=== PATIENT | female | born 1935 | race Caucasian/White ===

== ENCOUNTER 2016-03-16 10:43 | Emergency (ER) | payer OTHER ==
[2016-03-16 10:49] VITALS: TEMP 97.7
--- NOTE | 2016-03-16 10:59 | CPEKG ---
Heart Rate: 60 RR Interval: 1000 P-R Interval: 234 QRSD Interval: 126 QT Interval: 420 QTC Interval: 420 P [place]: 0 QRS [place]: -81 T Wave [place]: 92 EKG Severity - ABNORMAL ECG - EKG Impression: VENTRICULAR-PACED RHYTHM Electronically Signed By: Harry Grant 16-Mar-2016 21:18:04
[2016-03-16 11:02] VITALS: PULSE 60
--- NOTE | 2016-03-16 11:29 | EDPHY ---
H & P Stated Complaint: R arm pain into jaw now has resolved Time Seen by Provider: 03/16/16 11:07 - Personal History Current Tetanus/Diphtheria Vaccine: Unsure Current Tetanus Diphtheria and Acellular Pertussis (TDAP): Unsure Tetanus Vaccine Date: UNSURE OF DATE-LONG TIME AGO - Medical/Surgical History Hx Asthma: No Hx Chronic Respiratory Disease: No Hx Diabetes: No Hx Cardiac Disease: Yes Hx Renal Disease: No Hx Cirrhosis: No Hx Alcoholism: No Hx HIV/AIDS: No Hx Splenectomy or Spleen Trauma: No Other PMH: bradycardia, pacemaker, stroke, hyperlipidemia, hypertension - Social History Smoking Status: Former smoker Constitutional: Initial Vital Signs Temperature (C) 36.5 C 03/16/16 10:46 Heart Rate 62 03/16/16 10:46 Respiratory Rate 14 03/16/16 10:46 Blood Pressure 147/100 H 03/16/16 10:46 O2 Sat (%) 97 03/16/16 10:46 O2 Delivery Mode Room Air Allergies/Adverse Reactions: Penicillins Allergy (Intermediate, Verified 02/21/14 11:05) Rash Sulfa (Sulfonamide Antibiotics) Allergy (Intermediate, Verified 02/21/14 11:05) Rash Home Medications: Medication Instructions Recorded Bimatoprost 0.01% [Lumigan 0.01% 1 drops EACHEYE HS 12/19/12 (*)] Eflornithine HCl [Vaniqa] 1 keith TP BID 12/12/13 Polysorbate 80/Glycerin [Refresh 1 drop OP Q4 PRN 12/12/13 Dry Eye Therapy Drops] Donepezil HCl [Aricept] 10 mg PO DAILY 03/10/16 Prasugrel HCl [Effient 5mg (*)] 5 mg PO DAILY #0 tab 03/12/16 Aspirin [Aspirin 325 mg (*)] 325 mg PO DAILY 100 Days 03/13/16 amLODIPine BESYLATE [Norvasc 10 mg 10 mg PO DAILY #30 tab 03/13/16 (*)] Medical Decision Making ED Course/Re-evaluation: CHIEF COMPLAINT: Arm, shoulder and neck pain HISTORY OF PRESENT ILLNESS: 80-year-old female who is somewhat of a poor historian as she has some mild dementia. She states that she had a stent placed about a week ago. At that time she had left chest pain which is persistent and some shortness of breath. She was admitted to the hospital and received stenting. She was discharged and was discharged on Eliquis however she is not sure she is taking that or not she can remember. Today while at rest she developed right arm pain right shoulder pain and right neck pain which she has had was quite strong but only lasted a couple of minutes. She had no associated symptoms. This was not like the pain that presented before catheterization. She is also concerned because she has significant bruising of the right forearm. She denies any other symptoms at this time. REVIEW OF SYSTEMS: A 10 point review of systems was performed and is negative with the exception of the elements mentioned in the history of present illness. PHYSICAL EXAM: HR, BP, O2 Sat, RR. Temp noted General Appearance: Alert, well hydrated, appropriate, and non-toxic appearing. Head: Atraumatic without scalp tenderness or obvious injury Eyes: Pupils equal, round, reactive to light and accommodation, EOMI, no trauma , no injection. Ears: Clear bilaterally, no perforation, normal landmarks Nose: Atraumatic, no rhinorrhea, clear. Throat: There is no erythema or exudates, no lesions, normal tonsils, mucus membranes moist. Neck: Supple, 2+ carotid upstroke, nontender, no lymphadenopathy. Respiratory: No retractions, no distress, no wheezes, and no accessory muscle use. Lungs are clear to auscultation bilaterally. Cardiovascular: Regular rate and rhythm, no murmurs, rubs, or gallops. Bilateral carotid, radial, dorsalis pedis, and posterior tibial pulses intact. Good capillary refill all extremities. Gastrointestinal: Abdomen is soft, nontender, non-distended, no masses, no rebound, no guarding, no peritoneal signs. Musculoskeletal: Normal active ROM of all extremities, atraumatic. Neurological: Alert, appropriate, and interactive. The patient has normal DTRs and non-focal cranial nerves, motor, sensory, and cerebellar exam. Skin: Ecchymosis of the right forearm where she had stent placement. No rashes , good turgor, no nodules on palpation. Past medical history: Coronary artery disease, hypertension, dysrhythmia, mild dementia Past surgical history: Stent placement Family history: Noncontributory Social history: , does not abuse tobacco drugs or alcohol, retired, lives alone DIAGNOSTICS/PROCEDURES/CRITICAL CARE TIME: The 12 lead EKG was interpreted by myself. See hard copy and/or "tracemaster" electronic copy for interpretation. Paced rhythm the same as 03/12/16 DIFFERENTIAL DIAGNOSIS: The differential diagnosis for the patient's right arm , shoulder, neck included but was not limited to myocardial ischemia, pulmonary embolus, chest wall pain, musculoskeletal pain, pleural inflammation, and pulmonary infectious causes. MEDICAL DECISION MAKING: This patient has no infectious symptoms. She had a brief episode of sharp right arm and right neck pain. Her EKG looks the same as prior EKG but it is paced. My only real concern is that she is unsure if she is taking Eliquis even though it is on her discharge instructions from Dr. Lau. Laboratory studies are pending. The patient remains asymptomatic. The patient's troponin noted to be elevated at .898. However, this is down from her troponin of 9.7 on 03/12/2016 (4 days ago). 1214: Consulted with Dr. Melton, cardiology. Dr. Melton knows this family extremely well and has known for 20-30 years. He does not think that this is anything to do with cardiac event and he believes this is most likely due to her right wrist cannulation for her catheterization. She had very brief less than a couple of minutes sharp pain in her right arm and shoulder. Her coronary symptoms are most usually left chest pain. Her troponin is slightly elevated but coming down from her catheterization. Dr. Melton has a follow-up visit ready scheduled with her this week in addition to a nuclear med study. Dr. Lam does not believe she needs to be admitted. I will discharge the patient home to follow up as an outpatient. 1331: Reassessed patient. Her is angry and Dr. Melton has offered to speak to him, which is being set up now. - Data Points Laboratory Results: Laboratory Results 03/16/16 11:05 03/16/16 11:05 03/16/16 11:05 WBC 6.97 10^3/uL (3.80-9.50) RBC 4.30 10^6/uL (4.18-5.33) Hgb 14.6 g/dL (12.6-16.3) Hct 43.7 % (38.0-47.0) MCV 101.6 H fL (81.5-99.8) MCH 34.0 pg (27.9-34.1) MCHC 33.4 g/dL (32.4-36.7) RDW 13.1 % (11.5-15.2) Plt Count 274 10^3/uL (150-400) MPV 10.3 fL (8.7-11.7) Neut % (Auto) 68.2 % (39.3-74.2) Lymph % (Auto) 20.1 % (15.0-45.0) [place] % (Auto) 10.2 % (4.5-13.0) Eos % (Auto) 0.6 % (0.6-7.6) Baso % (Auto) 0.6 % (0.3-1.7) Nucleat RBC Rel Count 0.0 % (0.0-0.2) Absolute Neuts (auto) 4.76 10^3/uL (1.70-6.50) Absolute Lymphs (auto) 1.40 10^3/uL (1.00-3.00) Absolute Monos (auto) 0.71 10^3/uL (0.30-0.80) Absolute Eos (auto) 0.04 10^3/uL (0.03-0.40) Absolute Basos (auto) 0.04 10^3/uL (0.02-0.10) Absolute Nucleated RBC 0.00 10^3/uL (0-0.01) Immature Gran % 0.3 % (0.0-1.1) Immature Gran # 0.02 10^3/uL (0.00-0.10) Sodium 146 H mEq/L (134-144) Potassium 4.4 mEq/L (3.5-5.2) Chloride 108 mEq/L (97-110) Carbon Dioxide 24 mEq/l (22-31) Anion Gap 14 mEq/L (8-16) BUN 31 H mg/dL (7-23) Creatinine 1.0 mg/dL (0.6-1.0) Estimated GFR 53 Glucose 63 L mg/dL (70-100) Calcium 9.7 mg/dL (8.5-10.4) Troponin I 0.898 H ng/mL (0-0.034) Departure - Departure Disposition: Home, Routine, Self-Care Clinical Impression: Arm pain, right Condition: Good Instructions: Arm Pain (ED) Additional Instructions: Follow up with Dr. Melton as scheduled and discussed. Return to the emergency department for chest pain, shortness of breath, or other serious worsening of condition. Referrals: Manuel Olivares MD [Primary Care Provider] - As per Instructions Angel Melton MD [Medical Doctor] - As per Instructions Report Scribed for: Harry Grant Report Scribed by: Johnathon Ruiz Date of Report: 03/16/16 Time of Report: 12:15
[2016-03-16 11:30] LABS: % IMMATURE GRANULYOCYTES 0.3 % (0.0-1.1); ABSOLUTE IMMATURE GRANULOCYTES 0.02 10^3/uL (0.00-0.10); ADD DIFF? NO; ADD MORPH? NO; ADD SCAN? NO; ATYPICAL LYMPHOCYTE FLAG 10 (0-99); FRAGMENT RBC FLAG 0 (0-99); HEMATOCRIT 43.7 % (38.0-47.0); HEMOGLOBIN 14.6 g/dL (12.6-16.3); LEFT SHIFT FLG 0 (0-99); LIPEMIA HEMOLYSIS FLAG 80 (0-99); MEAN CELL HEMOGLOBIN CONCENTR. 33.4 g/dL (32.4-36.7); MEAN CELL VOLUME 101.6 fL (81.5-99.8); MEAN PLATELET VOLUME 10.3 fL (8.7-11.7); PLATELET CLUMPS FLAG 0 (0-99); PLATELET COUNT 274 10^3/uL (150-400); RED CELL DISTRIBUTION WIDTH 13.1 % (11.5-15.2)
[2016-03-16 11:40] LABS: ANION GAP 14 mEq/L (8-16); CALCIUM 9.7 mg/dL (8.5-10.4); CARBON DIOXIDE 24 mEq/l (22-31); CHLORIDE 108 mEq/L (97-110); GLOMERULAR FILTRATION RATE 53; GLUCOSE 63 mg/dL (70-100); POTASSIUM 4.4 mEq/L (3.5-5.2); SODIUM 146 mEq/L (134-144)
[2016-03-16 11:52] LABS: TROPONIN I 0.898 ng/mL (0-0.034)
[2016-03-16 13:56] VITALS: BP 119/67; RESP 16; O2SAT 94
== END 2016-03-16 13:55 | disposition home or self-care (01) ==
DX: M79.621 Pain in right upper arm (principal); I10 Essential (primary) hypertension; I25.10 Atherosclerotic heart disease of native coronary artery without angina pectoris; Z79.82 Long term (current) use of aspirin; Z86.73 Personal history of transient ischemic attack (TIA), and cerebral infarction without residual deficits; Z87.891 Personal history of nicotine dependence; Z95.5 Presence of coronary angioplasty implant and graft

== ENCOUNTER 2016-03-21 13:31 | Observation (INO) | payer OTHER ==
--- NOTE | 2016-03-21 13:51 | CPEKG ---
Heart Rate: 60 RR Interval: 1000 P-R Interval: 288 QRSD Interval: 124 QT Interval: 432 QTC Interval: 432 P [place]: 0 QRS [place]: -78 T Wave [place]: 85 EKG Severity - ABNORMAL ECG - EKG Impression: VENTRICULAR-PACED RHYTHM Electronically Signed By: Regla Tipton 21-Mar-2016 14:06:29
--- NOTE | 2016-03-21 13:57 | EDPHY ---
[id number] ILLNESS: The patient is an 80 year old female with recent MD with stenting who presents with chest pain. Cardiac catherization and RCA stenting complicated by guide wire perforation of RCA and subsequent pericardial effusion. She presents to the ED today with recurrent chest pain. Chest pain started at 2:45 a.m. and lasted until 4:30 a.m.. Her states she was having difficulty breathing while she was sleeping. When he woke her up she complained of "active" chest pain. Her pain is localized to the left side of her chest and radiates down her left shoulder. She states this pain feels is similar to the pain she experienced last week and was evaluated for here. She is scheduled to have a nuclear stress test done in 2 days. She denies nausea, vomiting, or lower extremity swelling. REVIEW OF SYSTEMS: Aside from elements discussed in the HPI, a comprehensive 10-point review of systems was reviewed and is negative. Past Medical/Surgical History: Recent MD requiring catheterization. Bradycardia, Pacemaker, Stroke, Hyperlipidemia, Hypertension. Social History: at bedside. Smoking Status: Former smoker Physical Exam: General Appearance: Alert, pleasant and talkative, difficulty with short-term memory Eyes: Pupils equal and round, no conjunctival pallor or injection ENT, Mouth: Mucous membranes moist Neck: Normal inspection Respiratory: Lungs are clear to auscultation Cardiovascular: Regular rate and rhythm Gastrointestinal: Abdomen is soft and non-tender Neurological: A&O, nonfocal, normal gait Skin: Warm and dry, no rash Extremities: Nontender, no pedal edema Psychiatric: Mood and affect normal Constitutional: Initial Vital Signs Temperature (C) 36.6 C 03/21/16 13:35 Heart Rate 60 03/21/16 13:35 Respiratory Rate 16 03/21/16 13:35 Blood Pressure 135/70 H 03/21/16 13:35 O2 Sat (%) 96 03/21/16 13:35 O2 Delivery Mode Room Air Allergies/Adverse Reactions: Penicillins Allergy (Intermediate, Verified 03/21/16 13:34) Rash Sulfa (Sulfonamide Antibiotics) Allergy (Intermediate, Verified 03/21/16 13:34) Rash Home Medications: Medication Instructions Recorded Bimatoprost 0.01% [Lumigan 0.01% 1 drops EACHEYE HS 12/19/12 (*)] Eflornithine HCl [Vaniqa] 1 keith TP BID 12/12/13 Polysorbate 80/Glycerin [Refresh 1 drop OP Q4 PRN 12/12/13 Dry Eye Therapy Drops] Donepezil HCl [Aricept] 10 mg PO DAILY 03/10/16 Prasugrel HCl [Effient 5mg (*)] 5 mg PO DAILY #0 tab 03/12/16 Aspirin [Aspirin 325 mg (*)] 325 mg PO DAILY 100 Days 03/13/16 amLODIPine BESYLATE [Norvasc 10 mg 10 mg PO DAILY #30 tab 03/13/16 (*)] Ipratropium 0.06% Nasal [Atrovent 2 sprays EACHNARE TID PRN 03/21/16 0.06% Nasal] Loratadine [Claritin 10 mg] 10 mg PO DAILY PRN 03/21/16 Famotidine [Pepcid 20 MG (*)] 20 mg PO BID #60 tab 03/22/16 Medical Decision Making - Diagnostics EKG Interpretation: The 12 lead EKG was interpreted by myself. See hard copy and/or "tracemaster" electronic copy for interpretation: Ventricular paced rhythm, Rate 60. Imaging: Study: X-ray of the chest was obtained. Results: No acute disease. I viewed the images myself on the PACS system. ED Course/Re-evaluation: Clinical presentation concerning for acute coronary syndrome, possibly related to stent occlusion. Stat EKG reveals no evidence of ischemia or dysrhythmia. Pt asymptomatic now and took ASA in past 24 hrs. Troponin is elevated, pt remains pain-free. Will admit for further cardiac evaluation. I consulted hospitalist service, Dr. Souza will admit the patient. I consulted cardiology, Dr. Nagel will see the pt. Differential Diagnosis: Differential diagnosis includes though it is not limited to pneumonia, pneumothorax, pulmonary embolism, aortic dissection, pericarditis, acute coronary syndrome. - Data Points Laboratory Results: Laboratory Results 03/21/16 13:57 03/21/16 13:57 Medications Given: Discontinued Medications Amlodipine Besylate (Norvasc) 10 mg PO DAILY [facility] Stop: 09/18/16 08:59 Last Admin: 03/22/16 08:08 Dose: 10 mg Aspirin (Aspirin) 325 mg PO DAILY [facility] Stop: 09/18/16 08:59 Last Admin: 03/22/16 08:08 Dose: 325 mg Bimatoprost (Lumigan 0.01%) 1 drops EACHEYE HS [facility] Stop: 09/17/16 20:59 Last Admin: 03/21/16 21:44 Dose: 1 drop Donepezil HCl (Aricept) 10 mg PO DAILY [facility] Stop: 09/17/16 20:59 Last Admin: 03/22/16 08:07 Dose: 10 mg Enoxaparin Sodium (Lovenox) 40 mg SC DAILY [facility] Stop: 09/18/16 08:59 Last Admin: 03/22/16 09:54 Dose: Not Given Ipratropium [place] (Atrovent 0.06% Nasal) 2 sprays EACHNARE TID PRN PRN Reason: NASAL DISCHARGE Stop: 09/17/16 16:21 Last Admin: 03/21/16 21:44 Dose: 2 sprays Miscellaneous Medication (Eflornithine Hcl [Vaniqa]) 0 keith TP BID [facility] Stop: 09/17/16 20:59 Last Admin: 03/22/16 08:08 Dose: 1 keith Miscellaneous Medication (Polysorbate 80/Glycerin [Refresh Dry Eye Therapy Drops ]) 0 drop OP Q4 PRN PRN Reason: DRY EYES Last Admin: 03/21/16 21:44 Dose: 1 drop Prasugrel (Effient) 5 mg PO DAILY [facility] Stop: 09/18/16 08:59 Last Admin: 03/22/16 08:07 Dose: 5 mg Departure - Departure Disposition: [facility] Inpatient Acute Clinical Impression: Chest pain, Elevated troponin Condition: Fair Report Scribed for: Regla Tipton Report Scribed by: Zeina Vargas Date of Report: 03/21/16 Time of Report: 13:57 Physician Review and Approval Statement: 03/21/16 13:57 Portions of this note were transcribed by a medical dermatologist. I personally performed the history, physical exam, and medical decision-making; and confirmed the accuracy of the information in the transcribed note.
[2016-03-21 13:59] LABS: % IMMATURE GRANULYOCYTES 0.2 % (0.0-1.1); ABSOLUTE IMMATURE GRANULOCYTES 0.01 10^3/uL (0.00-0.10); ADD DIFF? NO; ADD MORPH? NO; ADD SCAN? NO; ATYPICAL LYMPHOCYTE FLAG 20 (0-99); FRAGMENT RBC FLAG 0 (0-99); HEMATOCRIT 43.1 % (38.0-47.0); HEMOGLOBIN 14.2 g/dL (12.6-16.3); LEFT SHIFT FLG 0 (0-99); LIPEMIA HEMOLYSIS FLAG 80 (0-99); MEAN CELL HEMOGLOBIN 33.6 pg (27.9-34.1); MEAN CELL HEMOGLOBIN CONCENTR. 32.9 g/dL (32.4-36.7); MEAN CELL VOLUME 101.9 fL (81.5-99.8); MEAN PLATELET VOLUME 9.8 fL (8.7-11.7); PLATELET CLUMPS FLAG 0 (0-99); PLATELET COUNT 324 10^3/uL (150-400); RED BLOOD CELL COUNT 4.23 10^6/uL (4.18-5.33); RED CELL DISTRIBUTION WIDTH 12.9 % (11.5-15.2)
[2016-03-21 14:25] LABS: ANION GAP 12 mEq/L (8-16); CALCIUM 9.9 mg/dL (8.5-10.4); CARBON DIOXIDE 27 mEq/l (22-31); CHLORIDE 106 mEq/L (97-110); GLOMERULAR FILTRATION RATE 53; GLUCOSE 80 mg/dL (70-100); POTASSIUM 4.2 mEq/L (3.5-5.2); SODIUM 145 mEq/L (134-144)
[2016-03-21 14:39] LABS: TROPONIN I 0.056 ng/mL (0-0.034)
--- NOTE | 2016-03-21 15:42 | DX ---
PA and Lateral Chest March 21, 2016 Indication: Chest pain. Comparison: Portable chest dated March 10, 2016 Findings: The lungs are well aerated and clear. A left anterior chest wall pacemaker is well seated w ith the tip in the right ventricle. No pneumothorax, edema, consolidation or effusion. Minimal cardio megaly, coronary stent, and demineralization of the thoracic spine are all unchanged. Impression: 1. No acute process. 2. Cardiomegaly without failure.
[2016-03-21] MEDS ORDERED: ONDANSETRON 4 MG/2 ML VIAL IVP PRN (16:20)
[2016-03-21] MEDS ORDERED: ACETAMINOPHEN 325 MG TAB PO PRN (16:20)
[2016-03-21] MEDS ORDERED: PROMETHAZINE HCL 25 MG/ML VIAL IVP PRN (16:20)
[2016-03-21] MEDS ORDERED: ONDANSETRON DISINTEGRATING 4 MG TAB PO PRN (16:20)
[2016-03-21] MEDS ORDERED: CARBOXYMETHYLCELLULOSE 0.5% OP PRN (16:22)
[2016-03-21] MEDS ORDERED: IPRATROPIUM 0.06% NASAL SPRAY EACHNARE PRN (16:22)
--- NOTE | 2016-03-21 18:10 | GHP ---
[f rep st] HISTORY AND PHYSICAL DATE OF ADMISSION: 03/21/2016 CHIEF COMPLAINT: Chest pain. HISTORY: This is an 80-year-old female with a past medical history that includes coronary artery dis ease status post NSTEMI at the end of last month, for which she had a heart catheterization and stent placement, who presents with recurrent chest pain that began last night. The patient is a poor hist orian secondary to dementia and prior CVA, but it sounds like she had chest pain that began last nigh t and is now resolved. It is unclear how long it lasted. She states it is similar to chest pain she has had in the past. Of note, she was in the ER 5 days ago for similar symptoms. She denies any as sociated symptoms, including shortness of breath, nausea, or vomiting. She does have some radiation to her left shoulder. 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 PAST MEDICAL HISTORY: Includes: 1. Coronary artery disease. 2. Symptomatic bradycardia. 3. Hypertension. 4. Hyperlipidemia. 5. 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 6. Dementia. 7. Glaucoma. 8. Polymyalgia rheumatica. 9. GERD. 10. Diastolic dysfunction. 11. Chronic atrial fibrillation. 12. History of complete heart block. PAST SURGICAL HISTORY: 1. Permanent pacemaker placement. 2. Cholecystectomy. FAMILY HISTORY: Parents are . SOCIAL HISTORY: Patient has a remote tobacco use history. She denies alcohol or illicits. REVIEW OF SYSTEMS: 10-point review of systems obtained and negative except as per HPI. MEDICATIONS: Include: 1. Ipratropium. 2. Bimatoprost. 3. Amlodipine. 4. Effient. 5. Refresh eye drops. 6. Vaniqa cream. 7. Donepezil. 8. Aspirin. ALLERGIES: Include: 1. Penicillin. 2. Sulfa. PHYSICAL EXAM: VITAL SIGNS: BP 127/66, heart rate 60, respiratory rate 18, O2 sat 97% on room air. GENERAL APPEARANCE: Elderly female, awake and alert, in no acute distress. HEENT: Eyes: Sclerae are injected bilaterally. Oropharynx is clear. HEART: Regular rate and rhythm. Systolic murmur at upper sternal border. LUNGS: CTA bilaterally to anterior exam. Normal work of breathing. ABDOMEN : Soft, nontender, nondistended. Positive bowel sounds. EXTREMITIES: No clubbing, cyanosis, or ed fermin. SKIN: Warm, dry, well perfused. NEUROLOGIC: Oriented and appropriate. She does have evidenc e of cognitive dysfunction. CLINICAL DATA: Labs reviewed. CBC is unremarkable other than an MCV of 101.9. Chemistry notable fo r a sodium of 145. Troponin is 0.056, down from 0.898 on 03/16/2016 and down from 9.7 at the day of discharge. EKG, reviewed and interpreted independently by me, shows a V-paced rhythm without any obvious ischemi c changes. Chest x-ray, reviewed and interpreted independently by me, shows nothing acute. ASSESSMENT AND PLAN: This is an 80-year-old female with a past medical history of coronary artery di sease, status post recent PCI, presenting with chest pain. 1. Chest pain. Initial workup, including EKG and troponins, relatively reassuring. Her troponin is trending down from 5 days ago and significantly down from her last hospital discharge from PCI. Whitley n is to monitor her on telemetry and trend troponins. If her troponins are elevating, she will under go cardiac catheterization in the morning and will be n.p.o. after midnight in case that is the case. If her troponins are trending down, however, she likely can be discharged home tomorrow with a plan to follow up for her outpatient stress test. This plan was reviewed with Dr. Nagel of Cardiology. 2. Coronary artery disease. The patient did have known residual disease that was not intervened upo n after her last heart cath given complications that occurred during that procedure. She has residua l LAD disease and that was the reason for the planned nuclear stress. Continue her outpatient medica tions for now, and otherwise workup is as per above. 3. Dementia. This is at baseline, although it does make history obtaining somewhat difficult. 4. Macrocytosis. This has been persistent for some time. She has had B12 levels fairly recently th at were mildly elevated. We will check a TSH as it has not been checked in several years. 5. Chronic medical problems, including hypertension, hyperlipidemia, and glaucoma. We will continue her outpatient regimen. 6. Code status is full. 7. Disposition. Observation status. I suspect she will need less than a 48-hour stay for evaluatio n and management of above. 8. The patient is new to my care. Old records reviewed and summarized as per HPI and past medical h istory. Care plan reviewed with Dr. Nagel of Cardiology as per above. /[id number]/MODL
--- NOTE | 2016-03-21 18:40 | GCON ---
[f rep st] CONSULTATION CARDIOLOGY CONSULTATION DATE OF CONSULTATION: 03/21/2016 REFERRING PHYSICIAN: Regla Tipton MD REASON FOR CONSULTATION: 1. Chest pain. 2. History of recent ixi-IE-xwzwljxhk myocardial infarction with PCI to the RCA. HISTORY OF PRESENT ILLNESS: The patient is a pleasant 80-year-old female with a past medical history of recent yrt-FI-ghrtfplil myocardial infarction on March 11, 2016. She underwent left heart cat heterization and percutaneous coronary intervention to the right coronary artery. Left heart cathete rization demonstrated diffuse mild disease within the proximal portion with lesions of 90% in the mid RCA. She underwent successful PCI with a 3.0 x 38 mm Synergy stent. She also underwent 2.0 x 10 mm PCI x2 to the RCA as well. She did have residual disease in the mid LAD of 60-70%, just distal to t he origin of the 1st obtuse marginal branch, and mid vessel circumflex disease of approximately 40-50 %. Of note, her left heart cardiac catheterization was complicated by a small guidewire perforation and blushing in the pericardial space. She remained hemodynamically stable. Serial echocardiograms demonstrated no increase in pericardial effusion. Of note, [facility] and was discharged home. Of note, she was discharged on March 12 with a troponin of 9.71. Evaluation in the ER on demonstrated troponin of 0.898. Today's initial troponin was 0.056. The patient states she was in her usual state of health until approximately 2:45 this a.m. She awoke with left-sided sharp chest pain that began in her arm and radiated into the shoulder and into the l eft axilla and anterior chest. She described it as an "acid" type discomfort. She lie in bed for ap proximately 2 hours and symptoms resolved spontaneously. She did not take sublingual nitroglycerin o r additional aspirin. She states she has been compliant with her medications. Upon her arrival in the emergency department, she was chest pain-free. ECG demonstrates paced rhythm . Chest x-ray demonstrates no acute process. Currently, at the time of my exam, she is resting comfort ably without complaint. PAST MEDICAL HISTORY: 1. Gtc-ZN-isasbhdts myocardial infarction March 11, 2016 with PCI x3 to the RCA. 2. Residual coronary artery disease with 60-70% mid LAD and 40-50% mid circumflex disease. 3. History of symptomatic bradycardia, status post permanent pacemaker. 4. Hypertension. 5. Hyperlipidemia. 6. Glaucoma. 7. History of CVA. 8. PMR. 9. GERD. PAST SURGICAL HISTORY: Includes pacer implantation and laparoscopic cholecystectomy. FAMILY HISTORY: Noncontributory. SOCIAL HISTORY: Patient is a former smoker. She lives with her . She does not drink signifi cant quantities of alcohol. REVIEW OF SYSTEMS: Currently, at the time of my exam, 10-point review of systems is negative. MEDICATIONS ON ADMISSION: Include: 1. Amlodipine 10 mg daily. 2. Aspirin 325 mg daily. 3. Effient 5 mg daily. 4. Lumigan eyedrops 1 drop each eye daily. 5. Aricept 10 mg daily. 6. Ipratropium or Atrovent nasal spray 2 sprays t.i.d. as needed. 7. Vaniqa 1 application b.i.d. ALLERGIES: Penicillin and sulfa. PHYSICAL EXAMINATION: VITAL SIGNS: Blood pressure 127/66, heart rate of 60 which is paced, respirat ory rate of 18, oxygen saturation 97% on room air. GENERAL: She is awake, alert, oriented, appropri ate. No apparent distress. NECK: There is no evidence of JVP or carotid bruits. CARDIAC: S1, S2. Regular rate and rhythm. No murmurs, rubs, or gallops. PMI is not displaced. ABDOMEN: Soft, nontender, nondistended. LUNGS: Clear to auscultation bilaterally. EXTREMITIES: T here is no evidence of lower extremity edema. There is no cyanosis or clubbing. Radial pulses are 2 + bilaterally. She does have some mild ecchymosis along the right radial artery puncture site from p revious left heart catheterization on March 11, 2016. DATA: Chest x-ray demonstrates no acute process. ECG demonstrates paced rhythm. LAB WORK: White blood cell count 6.61, hemoglobin 14.2, hematocrit 43.1, platelets 324. Sodium 145, potassium 4.2, chloride 106, bicarb 27, BUN 27, creatinine 1, glucose 80, calcium 9.9, N-terminal pr oBNP 1230. Troponin 0.056. IMPRESSION: 1. New onset of atypical chest discomfort. 2. History of coronary artery disease. 3. History of dob-PJ-ewswjmgna myocardial infarction. 4. Hypertension. 5. Hyperlipidemia. 6. History of bradycardia, status post permanent pacemaker. DISCUSSION: The patient is a pleasant 80-year-old female with recent jzy-DP-szpygxqkx myocardial inf arction with PCI x3 to the RCA with procedural complications of distal microperforation with guidewir e resulting in chest pain and mild blushing into the pericardium with no evidence of significant chas cardial effusion or tamponade. She remained hemodynamically stable post procedure. Since her discha rge on March 12, this is her 2nd presentation to the ER with complaints of chest discomfort. Vanessa thompson does have residual borderline mid LAD disease and has been scheduled for outpatient nuclear stress test with Dr. Angel Melton, who is her primary manager medical writing. Would recommend checking serial troponins and reassessing tomorrow morning. If she remains hemodynam ically stable with no rise in her troponin, would recommend discharge with outpatient nuclear stress test, on her current medical therapy. PLAN: 1. Serial troponins x3. 2. Continue outpatient cardiac medications. 3. N.p.o. after midnight. 4. Further risk stratification pending serial troponins over the next 12 hours. 5. I have spent 30 minutes with the patient during initial consultation. 6. I have reviewed her care with hospitalist and nursing staff. /[id number]/MODL
[2016-03-21 19:56] VITALS: PULSE 60; RESP 16
[2016-03-21] MEDS ORDERED: BIMATOPROST 0.01% 2.5 ML OPHT.BTL EACHEYE SCH (21:00)
[2016-03-21] MEDS: DONEPEZIL HCL 5 MG TAB PO SCH (21:45)
[2016-03-21] MEDS: EFLORNITHINE HCL TP SCH (22:08)
[2016-03-21 23:56] VITALS: TEMP 97.9
[2016-03-22 05:11] VITALS: O2SAT 93
[2016-03-22 06:01] LABS: % IMMATURE GRANULYOCYTES 0.2 % (0.0-1.1); ABSOLUTE IMMATURE GRANULOCYTES 0.01 10^3/uL (0.00-0.10); ADD DIFF? NO; ADD MORPH? NO; ADD SCAN? NO; ATYPICAL LYMPHOCYTE FLAG 30 (0-99); FRAGMENT RBC FLAG 0 (0-99); HEMATOCRIT 42.5 % (38.0-47.0); HEMOGLOBIN 14.2 g/dL (12.6-16.3); LEFT SHIFT FLG 10 (0-99); LIPEMIA HEMOLYSIS FLAG 80 (0-99); MEAN CELL HEMOGLOBIN CONCENTR. 33.4 g/dL (32.4-36.7); MEAN CELL VOLUME 101.7 fL (81.5-99.8); MEAN PLATELET VOLUME 10.4 fL (8.7-11.7); PLATELET CLUMPS FLAG 0 (0-99); PLATELET COUNT 300 10^3/uL (150-400); RED BLOOD CELL COUNT 4.18 10^6/uL (4.18-5.33); RED CELL DISTRIBUTION WIDTH 12.9 % (11.5-15.2)
[2016-03-22 06:20] LABS: ANION GAP 10 mEq/L (8-16); CALCIUM 9.4 mg/dL (8.5-10.4); CARBON DIOXIDE 25 mEq/l (22-31); CHLORIDE 108 mEq/L (97-110); GLOMERULAR FILTRATION RATE 53; GLUCOSE 80 mg/dL (70-100); POTASSIUM 4.3 mEq/L (3.5-5.2); SODIUM 143 mEq/L (134-144)
[2016-03-22 06:27] LABS: TROPONIN I 0.039 ng/mL (0-0.034)
[2016-03-22 07:24] VITALS: BP 127/67
[2016-03-22] MEDS: DONEPEZIL HCL 5 MG TAB PO SCH (08:07)
[2016-03-22] MEDS: EFLORNITHINE HCL TP SCH (08:08)
--- NOTE | 2016-03-22 08:23 | CPEKG ---
Heart Rate: 79 RR Interval: 759 P-R Interval: 132 QRSD Interval: 156 QTC Interval: 0 P [place]: -33 QRS [place]: -79 EKG Severity - ABNORMAL ECG - EKG Impression: VENTRICULAR-PACED COMPLEXES Electronically Signed By: José Antonio Alvarez 22-Mar-2016 10:46:31
--- NOTE | 2016-03-22 08:55 | PDCARPN ---
Cardiology Progress Note Chief Complaint: Chest pain. Assessment/Plan: Assessment: 1. Atypical Chest Pain 2. CAD with recent PCI x 3 to RCA with residual 60-70% Mid LAD cad Plan: -OK to discharge home on current medications -scheduled for out patient Nuclear Stress test tomorrow at [facility] -will discuss with Dr. Melton (her primary resident care manager rn) why not on statin therapy 03/22/16 08:52 Time Spent With Patient: 15 min spent with patient Objective: Vital Signs (8 Hrs) Temp Pulse Resp BP Pulse Ox 03/22/16 07:21 36.6 C 60 16 127/67 H 93 03/22/16 04:00 36.6 C 60 16 122/71 H 93 Intake/Output (24 Hrs) 03/21/16 03/22/16 03/23/16 05:59 05:59 05:59 Intake Total 300 Balance 300 Intake: Oral (ml) 300 Other: Weight 43.998 kg Number of Voids Toilet 1 Result Diagrams: 03/22/16 04:14 03/22/16 06:00 Cardiac Labs: Cardiac Lab Results (72 Hrs) 03/22/16 03/21/16 06:00 20:35 Troponin I 0.039 H 0.061 H EKG: V paced - Physical Exam Constitutional: WDWN, no apparent distress ICD10 Worksheet Patient Problems: Problems Problem Status Diagnosed Abdominal pain Acute Chest pain Acute Chronic Disease Mgmt/Transitional Care Acute Elevated troponin Acute Elevated troponin I level Acute
[2016-03-22] MEDS ORDERED: ENOXAPARIN 40 MG/0.4 ML SYR SC SCH (09:00)
[2016-03-22] MEDS ORDERED: ASPIRIN 325 MG TAB PO SCH (09:00)
[2016-03-22] MEDS ORDERED: PRASUGREL HCL 5 MG TAB PO SCH (09:00)
--- NOTE | 2016-03-22 11:07 | GDS ---
[f rep st] DISCHARGE SUMMARY DISCHARGE DIAGNOSES: 1. Atypical chest pain. 2. History of coronary artery disease, with recent stenting. 3. Early dementia. 4. History of permanent pacemaker. 5. Hypertension. 6. Previous history of cerebrovascular accident. HISTORY: The patient is an 80-year-old female, who had a non ST-segment elevation [place] March 11. She underwent PCI x3. At that time she presented with a few hours of chest pain, that felt like acid to her. The chest pain resolved in the emergency department. HOSPITAL COURSE: The patient was admitted. Cardiac enzymes were very slightly elevated, but could b e consistent previous [place], as her troponins had peaked at 9 on 03/12/2016. Then the following day, trina thompson was chest pain free. Cardiology saw the patient, and thought this was less likely cardiac and will get a stress test outpatient. Patient's TSH was slightly elevated at 6.88. She was instructed to follow up with her primary care joni rice and repeat this. Will send her home on scheduled Pepcid to see if this may help some of the pain. DISPOSITION: Home. DISCHARGE MEDICATIONS: She is to resume her home medicines. In addition, begin Pepcid. FOLLOW UP INSTRUCTIONS: Instructed to follow up with Cardiology next week. /[id number]/MODL
== END 2016-03-22 12:15 | disposition home or self-care (01) ==
LOC: F2W 15:47
PROVIDERS: ADMIT Internal Medicine; ATTEND Internal Medicine
DX: R07.89 Other chest pain (principal); I25.10 Atherosclerotic heart disease of native coronary artery without angina pectoris; I21.4 Non-ST elevation (NSTEMI) myocardial infarction; I69.354 Hemiplegia and hemiparesis following cerebral infarction affecting left non-dominant side; I69.322 Dysarthria following cerebral infarction; I10 Essential (primary) hypertension; F03.90 Unspecified dementia, unspecified severity, without behavioral disturbance, psychotic disturbance, mood disturbance, and anxiety; E78.5 Hyperlipidemia, unspecified; M35.3 Polymyalgia rheumatica; K21.9 Gastro-esophageal reflux disease without esophagitis; I48.2 Chronic atrial fibrillation; Z95.5 Presence of coronary angioplasty implant and graft; Z95.0 Presence of cardiac pacemaker
CPT/HCPCS: 71020; 93005; G0378

== ENCOUNTER → 2016-03-23 | Outpatient (CLI) | payer OTHER | LOC: BHFA 13:00 | PROVIDERS: ATTEND Internal Medicine Cardiovascular Disease | DX: I25.10 Atherosclerotic heart disease of native coronary artery without angina pectoris (principal) | CPT/HCPCS: 78452; 93017; A9500; J2785 ==

== ENCOUNTER 2016-04-13 16:37 | Observation (INO) | payer OTHER ==
--- NOTE | 2016-04-13 16:57 | CPEKG ---
Heart Rate: 60 RR Interval: 1000 P-R Interval: 268 QRSD Interval: 126 QT Interval: 428 QTC Interval: 428 P [place]: 227 QRS [place]: -76 T Wave [place]: 70 EKG Severity - ABNORMAL ECG - EKG Impression: VENTRICULAR-PACED RHYTHM Electronically Signed By: Regla Tipton 13-Apr-2016 21:22:36
[2016-04-13 17:16] LABS: % IMMATURE GRANULYOCYTES 0.4 % (0.0-1.1); ABSOLUTE IMMATURE GRANULOCYTES 0.02 10^3/uL (0.00-0.10); ADD DIFF? NO; ADD MORPH? NO; ADD SCAN? NO; ATYPICAL LYMPHOCYTE FLAG 10 (0-99); FRAGMENT RBC FLAG 0 (0-99); HEMOGLOBIN 14.4 g/dL (12.6-16.3); LEFT SHIFT FLG 0 (0-99); LIPEMIA HEMOLYSIS FLAG 80 (0-99); MEAN CELL HEMOGLOBIN 33.3 pg (27.9-34.1); MEAN CELL HEMOGLOBIN CONCENTR. 33.5 g/dL (32.4-36.7); MEAN CELL VOLUME 99.5 fL (81.5-99.8); PLATELET CLUMPS FLAG 0 (0-99); PLATELET COUNT 308 10^3/uL (150-400); RED BLOOD CELL COUNT 4.32 10^6/uL (4.18-5.33); RED CELL DISTRIBUTION WIDTH 13.2 % (11.5-15.2)
--- NOTE | 2016-04-13 17:20 | EDPHY ---
H & P Time Seen by Provider: 04/13/16 16:42 HPI/ROS: CHIEF COMPLAINT: Chest pain HISTORY OF PRESENT ILLNESS: 80-year-old female s/p NSTEMI and PCI x 3 on presents with chest pain that began at 1400 today. She was standing around her house when the pain began. It lasted 30 minutes. She denies associated shortness of breath, dizziness, nausea, or diaphoresis. The pain was not exertional. After the pain subsided she developed back pain and continues to have a faint discomfort in her chest. She has not had any pain since she was discharged from the hospital 22 days ago. She is unsure if the symptoms today are similar to her previous [place]. REVIEW OF SYSTEMS: A complete 10-point review of systems was performed and is negative except for those items mentioned in the HPI. Past Medical/Surgical History: [place], cardiac stents x3, pacemaker Social History: Former smoker. Smoking Status: Former smoker Physical Exam: General Appearance: Alert, pleasant Eyes: Pupils equal and round, no conjunctival pallor or injection ENT, Mouth: Mucous membranes moist Neck: Normal inspection Respiratory: Lungs are clear to auscultation Cardiovascular: Regular rate and rhythm Gastrointestinal: Abdomen is soft and nontender Neurological: A&O, nonfocal, normal gait Skin: Warm and dry, no rash Extremities: Nontender, no pedal edema Psychiatric: Mood and affect normal Constitutional: Initial Vital Signs Temperature (C) 36.8 C 04/13/16 16:46 Heart Rate 60 04/13/16 16:46 Respiratory Rate 18 04/13/16 16:46 Blood Pressure 77/67 L 04/13/16 16:46 O2 Sat (%) 98 04/13/16 16:46 O2 Delivery Mode Room Air Allergies/Adverse Reactions: Penicillins Allergy (Intermediate, Verified 04/13/16 16:45) Rash Sulfa (Sulfonamide Antibiotics) Allergy (Intermediate, Verified 04/13/16 16:45) Rash Home Medications: Medication Instructions Recorded Bimatoprost 0.01% [Lumigan 0.01% 1 drops EACHEYE HS 12/19/12 (*)] Eflornithine HCl [Vaniqa] 1 keith TP BID 12/12/13 Polysorbate 80/Glycerin [Refresh 1 drop OP Q4 PRN 12/12/13 Dry Eye Therapy Drops] Donepezil HCl [Aricept] 10 mg PO DAILY 03/10/16 Prasugrel HCl [Effient 5mg (*)] 5 mg PO DAILY #0 tab 03/12/16 Aspirin [Aspirin 325 mg (*)] 325 mg PO DAILY 100 Days 03/13/16 amLODIPine BESYLATE [Norvasc 10 mg 10 mg PO DAILY #30 tab 03/13/16 (*)] Ipratropium 0.06% Nasal [Atrovent 2 sprays EACHNARE TID PRN 03/21/16 0.06% Nasal] Famotidine [Pepcid 20 MG (*)] 20 mg PO BID #60 tab 03/22/16 Medical Decision Making - Diagnostics EKG Interpretation: EKG interpreted by me reveals ventricular-paced rhythm. Interpretation: abnormal EKG. Imaging: Chest x-ray reviewed by me reveals NAD. ED Course/Re-evaluation: Clinical presentation concerning for acute coronary syndrome. Patient took an aspirin today. Stat EKG reveals no evidence ischemia or dysrhythmia. An IV was established and labs ordered. Chest x-ray ordered. Patient was hypotensive at triage, though when her BP was rechecked upon arrival in her room, her blood pressure was normal. Unclear whether the initial BP was valid or not. No further episodes of hypotension in the emergency department. Troponin is negative. Patient continues to have a faint discomfort in her chest. She will require admission for further evaluation of chest pain. 180: Consulted with Dr. Chow, hospitalist. He accepts admission to PCU. Differential Diagnosis: Differential diagnosis includes though it is not limited to pneumonia, pneumothorax, pulmonary embolism, aortic dissection, pericarditis, acute coronary syndrome. - Data Points Laboratory Results: Laboratory Results 04/13/16 17:00 04/13/16 17:00 04/13/16 17:00 WBC 5.51 10^3/uL (3.80-9.50) RBC 4.32 10^6/uL (4.18-5.33) Hgb 14.4 g/dL (12.6-16.3) Hct 43.0 % (38.0-47.0) MCV 99.5 fL (81.5-99.8) MCH 33.3 pg (27.9-34.1) MCHC 33.5 g/dL (32.4-36.7) RDW 13.2 % (11.5-15.2) Plt Count 308 10^3/uL (150-400) MPV 10.0 fL (8.7-11.7) Neut % (Auto) 54.0 % (39.3-74.2) Lymph % (Auto) 32.7 % (15.0-45.0) [place] % (Auto) 10.5 % (4.5-13.0) Eos % (Auto) 1.3 % (0.6-7.6) Baso % (Auto) 1.1 % (0.3-1.7) Nucleat RBC Rel Count 0.0 % (0.0-0.2) Absolute Neuts (auto) 2.98 10^3/uL (1.70-6.50) Absolute Lymphs (auto) 1.80 10^3/uL (1.00-3.00) Absolute Monos (auto) 0.58 10^3/uL (0.30-0.80) Absolute Eos (auto) 0.07 10^3/uL (0.03-0.40) Absolute Basos (auto) 0.06 10^3/uL (0.02-0.10) Absolute Nucleated RBC 0.00 10^3/uL (0-0.01) Immature Gran % 0.4 % (0.0-1.1) Immature Gran # 0.02 10^3/uL (0.00-0.10) Sodium 143 mEq/L (134-144) Potassium 4.3 mEq/L (3.5-5.2) Chloride 109 mEq/L (97-110) Carbon Dioxide 24 mEq/l (22-31) Anion Gap 10 mEq/L (8-16) BUN 29 H mg/dL (7-23) Creatinine 0.9 mg/dL (0.6-1.0) Estimated GFR > 60 Glucose 90 mg/dL (70-100) Calcium 9.9 mg/dL (8.5-10.4) Troponin I < 0.012 ng/mL (0-0.034) Medications Given: Discontinued Medications Sodium Chloride (Ns) 1,000 mls @ 0 mls/hr IV ONCE ONE PRN Reason: Wide Open Stop: 04/13/16 19:36 Last Admin: 04/13/16 18:35 Dose: 1,000 mls Departure - Departure Disposition: [facility] Inpatient Acute Clinical Impression: Chest pain Condition: Fair Report Scribed for: Regla Tipton Report Scribed by: Johnathon Ruiz Date of Report: 04/13/16 Time of Report: 17:32 Physician Review and Approval Statement: 04/13/16 17:32 Portions of this note were transcribed by a er medical technician. I personally performed a history, physical exam, medical decision making, and confirmed accuracy of information the transcribed note.
[2016-04-13 17:38] LABS: ANION GAP 10 mEq/L (8-16); CALCIUM 9.9 mg/dL (8.5-10.4); CARBON DIOXIDE 24 mEq/l (22-31); CHLORIDE 109 mEq/L (97-110); CREATININE 0.9 mg/dL (0.6-1.0); GLOMERULAR FILTRATION RATE > 60; GLUCOSE 90 mg/dL (70-100); POTASSIUM 4.3 mEq/L (3.5-5.2); SODIUM 143 mEq/L (134-144)
[2016-04-13 17:48] LABS: TROPONIN I < 0.012 ng/mL (0-0.034)
--- NOTE | 2016-04-13 18:21 | DX ---
PA and lateral chest x-ray 1731 hours. History: Chest pain. Findings: Comparison to March 21, 2016. Single lead pacemaker unit remains in place. Heart size remains upper limits of normal. Pulmonary vas culature is mildly prominent centrally similar to the prior study. Arteriosclerotic calcification is noted at the aortic arch level. The lungs remain mildly hyperexpanded. There is no consolidation, eff usion, or pneumothorax. Osseous structures are unchanged. Mild to moderate compression is noted at T9 and L1 segments levels. Impression: 1. No active cardiopulmonary disease seen. 2. Stable compressions at T9 and L1. This was present dating back to Jul, 2014. 3. Hyperexpanded lungs similar to the prior study suggestive of underlying mild COPD.
[2016-04-13] MEDS ORDERED: oxyCODONE IR 5 MG TAB PO PRN (19:02)
[2016-04-13] MEDS ORDERED: ONDANSETRON DISINTEGRATING 4 MG TAB PO PRN (19:02)
[2016-04-13] MEDS ORDERED: ACETAMINOPHEN 325 MG TAB PO PRN (19:02)
[2016-04-13] MEDS ORDERED: ONDANSETRON 4 MG/2 ML VIAL IVP PRN (19:02)
[2016-04-13] MEDS ORDERED: POLYSORBATE OP PRN (19:06)
[2016-04-13] MEDS ORDERED: GLYCERIN OP PRN (19:06)
[2016-04-13] MEDS ORDERED: IPRATROPIUM 0.06% NASAL SPRAY EACHNARE PRN (19:06)
[2016-04-13] MEDS ORDERED: NS 1,000 ML IV ONE (19:35)
--- NOTE | 2016-04-13 19:49 | GHP ---
[f rep st] HISTORY AND PHYSICAL DATE OF ADMISSION: 04/13/2016 DATE OF EVALUATION: 04/13/2016 CHIEF COMPLAINT: Chest pain. HISTORY OF PRESENT ILLNESS: This is an 80-year-old female who had an NSTEMI, received stents to her RCA on 03/11/2016 presents with chest pain. She had on subsequent admission post stents on 7 also for chest pain. She describes chest pain as a squeezing sensation associated with sharp pain in her back. No other a ssociated symptoms. She has some dementia. It is unclear if this was similar to her previous NSTEMI . She was unsure whether to come to the emergency department, called triage at [facility] that re commended that she come in. She tells me that she now has a "memory of chest pain though it is much diminished from what it previously was." She had a stress test at [facility], I believe on the 9t h of this month, she has not heard results of this and takes this to be news that this was normal. PAST MEDICAL AND SURGICAL HISTORY: 1. Coronary artery disease, as above. 2. Bradycardia as well as complete heart block, status post pacemaker. 3. Hypertension. 4. Hyperlipidemia. 5. 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 6. Dementia. 7. Glaucoma. 8. Polymyalgia rheumatica. 9. GERD. 10. Diastolic dysfunction. 11. Chronic AFib. MEDICATIONS: Please see medication reconciliation. ALLERGIES: Penicillin and sulfa. FAMILY HISTORY: Parents are . SOCIAL HISTORY: Remote tobacco. She does not drink or use any other illicit drugs. REVIEW OF SYSTEMS: A 10-point review of systems is conducted and is negative except per HPI. PHYSICAL EXAM: VITAL SIGNS: Blood pressure 130/63, heart rate 60, respiration rate 20, satting 97% on room air, temperature is 36.8. GENERAL: This is a pleasant female who appears comfortable, in no acute distress. HEENT: Shows her to be normocephalic, atraumatic. CARDIOVASCULAR: Shows regular rate and rhythm. There are no murmurs, rubs, or gallops. PULMONARY: Shows lungs clear to auscultat ion bilaterally. ABDOMEN: Soft, nontender, nondistended. SKIN: Shows no rash. : No Lauren. NE UROLOGIC: Shows her to be alert and oriented x3. She has mild left-sided weakness. PSYCHIATRIC: S hows normal mood and affect. DATA: 1. I discussed Dr. Tipton, will plan to admit to PCU. 2. Personally viewed and interpreted her chest x-ray which shows pacemaker in place, otherwise there is normal heart size. Nothing acute. 3. EKG, which I personally reviewed and interpreted shows a V-paced rhythm. Unchanged from prior. IMPRESSION AND PLAN: An 80-year-old female with recent fmx-HK-kztyhhuok myocardial infarction who pr esents chest pain. 1. Chest pain: History is limited by dementia. She has recent history of an NSTEMI with stents. W ill plan to admit her to PCU, trend troponins. Cardiology will be consulted. We will keep her n.p.o . in case catheterization is deemed necessary. We will continue her aspirin and Effient for now. 2. Dementia: Limits her history she provides overall. Her accompanies her and does provide much of the history. 3. History of cerebrovascular accident: Will continue her antiplatelets. 4. Code Status: She is do not resuscitate. She and her are clear about this. She has the MOLST form. Her will be her POA. 5. VTE risk is moderate, I would continue Lovenox if she stays more than one midnight. /[id number]/MODL
[2016-04-13] MEDS ORDERED: [UNRECOGNIZED DRUG - OTHER] TP SCH (21:00)
[2016-04-13] MEDS ORDERED: BIMATOPROST 0.01% 2.5 ML OPHT.BTL EACHEYE SCH ×2 (21:00→21:30)
[2016-04-13] MEDS: FAMOTIDINE 20 MG TAB PO SCH (21:03)
[2016-04-13] MEDS: [UNRECOGNIZED DRUG - OTHER] TP SCH (22:41)
[2016-04-14 06:35] LABS: ADD DIFF? NO; ADD MORPH? NO; ADD SCAN? NO; ATYPICAL LYMPHOCYTE FLAG 10 (0-99); FRAGMENT RBC FLAG 0 (0-99); HEMATOCRIT 40.6 % (38.0-47.0); HEMOGLOBIN 13.6 g/dL (12.6-16.3); LEFT SHIFT FLG 0 (0-99); LIPEMIA HEMOLYSIS FLAG 80 (0-99); MEAN CELL HEMOGLOBIN 34.2 pg (27.9-34.1); MEAN CELL HEMOGLOBIN CONCENTR. 33.5 g/dL (32.4-36.7); MEAN PLATELET VOLUME 10.1 fL (8.7-11.7); PLATELET CLUMPS FLAG 10 (0-99); PLATELET COUNT 272 10^3/uL (150-400); RED BLOOD CELL COUNT 3.98 10^6/uL (4.18-5.33); RED CELL DISTRIBUTION WIDTH 13.2 % (11.5-15.2)
[2016-04-14 06:59] LABS: ANION GAP 7 mEq/L (8-16); CALCIUM 9.4 mg/dL (8.5-10.4); CARBON DIOXIDE 25 mEq/l (22-31); CHLORIDE 112 mEq/L (97-110); CREATININE 0.9 mg/dL (0.6-1.0); GLOMERULAR FILTRATION RATE > 60; GLUCOSE 83 mg/dL (70-100); POTASSIUM 4.3 mEq/L (3.5-5.2); SODIUM 144 mEq/L (134-144)
[2016-04-14 07:04] LABS: TROPONIN I 0.014 ng/mL (0-0.034)
[2016-04-14 08:09] VITALS: PULSE 60; TEMP 98
[2016-04-14] MEDS: FAMOTIDINE 20 MG TAB PO SCH (08:23)
[2016-04-14] MEDS: [UNRECOGNIZED DRUG - OTHER] TP SCH (08:28)
[2016-04-14] MEDS ORDERED: ASPIRIN 325 MG TAB PO SCH (09:00)
[2016-04-14] MEDS ORDERED: ENOXAPARIN 40 MG/0.4 ML SYR SC SCH (09:00)
[2016-04-14] MEDS ORDERED: PRASUGREL HCL 10 MG TAB PO SCH (09:00)
[2016-04-14] MEDS ORDERED: DONEPEZIL HCL 5 MG TAB PO SCH (09:00)
[2016-04-14 12:26] VITALS: BP 138/67; RESP 15; O2SAT 95
--- NOTE | 2016-04-14 12:45 | PDCARPN ---
Cardiology Progress Note Assessment/Plan: The patient is an 80-year-old woman familiar to me from her hospital admission in late February during which I performed a cardiac catheterization and PCI of the RCA. She received a single, long, drug-coated stent to the mid-RCA for high- grade disease up to 90%. The circumflex had a 40-50% lesion and the LAD had a 60 -70% area of disease just past the origin of the principal diagonal branch. She subsequently underwent a pharmacologic nuclear stress test in our office which demonstrated normal nuclear perfusion images without evidence of ischemia or infarction. She has had several episodes of chest discomfort at rest that have resulted in 2 additional hospital encounters... once in the emergency room and once for a short observation stay. This is now her second observation stay admission in the past few weeks. Her troponin levels are normal. I suspect her chest pain is noncardiac in origin but a component of vasospasm cannot be excluded. She is active for her age participating in both tennis and cross- country skiing. Exercise has not precipitated an episode of chest discomfort. A component of dementia and short-term memory issues also affect the reliability of her history. At this point there is no indication to proceed with PCI of her residual LAD stenosis. I would like for her to try sublingual nitroglycerin for recurrent episodes of discomfort. She has follow up in [address] Melton. 04/14/16 12:56 Subjective: No symptoms today. Reviewed/Discussed With: hospitalist Objective: Vital Signs (8 Hrs) Temp Pulse Resp BP Pulse Ox 04/14/16 12:21 36.7 C 60 15 138/67 H 95 04/14/16 08:07 36.7 C 60 21 H 134/73 H 96 Intake/Output (24 Hrs) 04/13/16 04/14/16 04/15/16 05:59 05:59 05:59 Intake Total 1350 Balance 1350 Intake: Oral (ml) 350 IV Infused (ml) 1000 Other: Weight 46.266 kg Number of Voids 2 Toilet 2 Result Diagrams: 04/14/16 05:30 04/14/16 05:30 Cardiac Labs: Cardiac Lab Results (72 Hrs) 04/14/16 04/14/16 05:30 01:00 Troponin I 0.014 0.013 - Physical Exam Constitutional: no apparent distress Eyes: anicteric sclera Ears, Nose, Mouth, Throat: moist mucous membranes Cardiovascular: regular rate and rhythm, no murmurs, no rubs, no gallops Respiratory: clear to auscultate bilat Gastrointestinal: normoactive bowel sounds, no tenderness, no masses Skin: no rashes, no edema Neurologic: AAOx3 Psychiatric: not anxious ICD10 Worksheet Patient Problems: Problems Problem Status Diagnosed Abdominal pain Acute Chest pain Acute Chronic Disease Mgmt/Transitional Care Acute Elevated troponin I level Acute Elevated troponin Acute
--- NOTE | 2016-04-14 16:15 | GDS ---
[f rep st] DISCHARGE SUMMARY DISCHARGE DIAGNOSES: Include: 1. Recurrent chest pain. 2. Coronary artery disease, status post recent stenting of the right coronary artery on 03/11/2016. 3. Bradycardia and complete heart block, status post permanent pacemaker. 4. Hypertension. 5. Hyperlipidemia. 6. History of cerebrovascular accident with left-sided neglect and dysarthria. 7. Dementia. 8. Glaucoma. 9. Polymyalgia rheumatica. 10. Gastroesophageal reflux disease. 11. Chronic diastolic heart failure. 12. Permanent atrial fibrillation. HISTORY OF PRESENT ILLNESS: An 80-year-old female with a recent cardiac intervention who presents wi th chest pain for the fourth time since her instrumentation in February 2016. For details of patient 's initial presentation, please see the history and physical dated 04/13/2016. CONSULTATIVE SERVICES: Include Cardiology. PROCEDURES: None. HOSPITAL COURSE BY ISSUE: Recurrent chest pain: Patient has had multiple presentations with complai nts of chest pain. She has had outpatient stress testing since her intervention at the end , which was negative, as well as other visits outpatient and inpatient with negative workups. Cardio kurty reconsulted today and did not feel that her chest symptoms are related to cardiac perfusion. Jose Alfredo chiquiluis will be discharged with 2 trial of sublingual nitroglycerin and will follow with Angel munoz the [facility] next week to report her response. MEDICATIONS AT THE TIME OF DISPOSITION: Please reference medication reconciliation printed on 2016. FOLLOWUP APPOINTMENTS: Include with Dr. Melton next week for her first post disposition followup. PENDING STUDIES AT THE OF THIS DICTATION: None. TIME SPENT: I spent greater than 30 minutes in the planning and coordination of this discharge. /[id number]/MODL
[2016-04-15] MEDS ORDERED: FAMOTIDINE 20 MG TAB PO SCH (09:00)
== END 2016-04-14 14:30 | disposition home or self-care (01) ==
LOC: F2W 19:40
PROVIDERS: ADMIT Student in an Organized Health Care Education/Training Program; ATTEND Student in an Organized Health Care Education/Training Program
DX: R07.9 Chest pain, unspecified (principal); I25.10 Atherosclerotic heart disease of native coronary artery without angina pectoris; Z95.5 Presence of coronary angioplasty implant and graft; I25.2 Old myocardial infarction; R00.1 Bradycardia, unspecified; I10 Essential (primary) hypertension; E78.5 Hyperlipidemia, unspecified; F03.90 Unspecified dementia, unspecified severity, without behavioral disturbance, psychotic disturbance, mood disturbance, and anxiety; I50.32 Chronic diastolic (congestive) heart failure; I48.1 Persistent atrial fibrillation; H40.9 Unspecified glaucoma; I69.354 Hemiplegia and hemiparesis following cerebral infarction affecting left non-dominant side; I69.322 Dysarthria following cerebral infarction; M35.3 Polymyalgia rheumatica; K21.9 Gastro-esophageal reflux disease without esophagitis; Z95.0 Presence of cardiac pacemaker; Z87.891 Personal history of nicotine dependence; Z66 Do not resuscitate
CPT/HCPCS: 71020; 93005; 99285; G0378; J1650

== ENCOUNTER → 2016-07-07 | Day surgery (SDC) | payer OTHER ==
[~2016-07-07] MED LIST: BACITRACIN IRRIGATION/NS 50,000 UNITS/1,000 ML BTL IRR ONE; BUPIVACAINE 0.5% 30 ML SDV ONE; KETOROLAC 15 MG/1 ML SDV IVP PRN; LIDOCAINE 1% 30 ML SDV ONE; MIDAZOLAM 2 MG/2 ML VIAL ONE; NITROGLYCERIN 0.4 MG BTL SL ONE; NITROGLYCERIN 0.4 MG BTL SL PRN; NS 1,000 ML IV ONE; VANCOMYCIN HCL/NORMAL SALINE 250 ML IV ONE; fentaNYL 100 MCG/2 ML INJ ONE
--- NOTE | 2016-07-07 12:54 | CPEKG ---
Heart Rate: 60 RR Interval: 1000 P-R Interval: 344 QRSD Interval: 126 QT Interval: 436 QTC Interval: 436 P [place]: 0 QRS [place]: -80 T Wave [place]: 85 EKG Severity - ABNORMAL ECG - EKG Impression: VENTRICULAR-PACED RHYTHM Electronically Signed By: Darrick Bentley 08-Jul-2016 09:06:50
[2016-07-07 13:07] LABS: % IMMATURE GRANULYOCYTES 0.2 % (0.0-1.1); ABSOLUTE IMMATURE GRANULOCYTES 0.01 10^3/uL (0.00-0.10); ADD DIFF? NO; ADD MORPH? NO; ADD SCAN? NO; ATYPICAL LYMPHOCYTE FLAG 0 (0-99); FRAGMENT RBC FLAG 0 (0-99); HEMATOCRIT 45.3 % (38.0-47.0); HEMOGLOBIN 15.3 g/dL (12.6-16.3); LEFT SHIFT FLG 0 (0-99); LIPEMIA HEMOLYSIS FLAG 90 (0-99); MEAN CELL HEMOGLOBIN CONCENTR. 33.8 g/dL (32.4-36.7); MEAN CELL VOLUME 97.6 fL (81.5-99.8); PLATELET CLUMPS FLAG 40 (0-99); PLATELET COUNT 276 10^3/uL (150-400); RED BLOOD CELL COUNT 4.64 10^6/uL (4.18-5.33)
[2016-07-07 13:18] LABS: INR 0.95 (0.83-1.16); PROTIME(PATIENT) 12.6 SEC (12.0-15.0)
[2016-07-07 13:24] LABS: ANION GAP 12 mEq/L (8-16); CALCIUM 9.9 mg/dL (8.5-10.4); CARBON DIOXIDE 23 mEq/l (22-31); CHLORIDE 109 mEq/L (97-110); GLOMERULAR FILTRATION RATE 53; GLUCOSE 87 mg/dL (70-100); POTASSIUM 4.5 mEq/L (3.5-5.2); SODIUM 144 mEq/L (134-144)
--- NOTE | 2016-07-07 15:08 | EPPROC ---
Electrophysiology Procedure Note: PROCEDURE PERFORMED: AV Pacemaker generator change INDICATION: Pacemaker generator at MARCELA Complete AV block PROCEDURE NOTE: Patient presented to the cardiac catheterization laboratory in a fasting, postabsorptive state. CCL RN administered sedation. Temporary pacemaker was placed via 5Fr sheath (right femoral vein) The left infraclavicular area was prepped and draped in the usual sterile fashion. Lidocaine plus bupivacaine was used for local anesthesia. Using a combination of blunt and sharp dissection and electrocautery, the dissection was carried down to the prepectoral fascia and the existing pacemaker pocket was opened. The pacemaker generator was disconnected from the leads and the lead thresholds and impedance were checked. The pacemaker pocket was copiously irrigated with antibiotic solution. The pocket was again inspected for any bleeding. The leads were attached to the pacemaker securely. The pacemaker was inserted into the pocket and secured in place with a nonabsorbable suture. The pacemaker pocket was closed in 3 layers with absorbable monocryl sutures and alfreda. Appropriate dressing was applied. The patient left the cardiac catheterization laboratory in stable condition. Serial Numbers: Device [employer] Etrina 8 [facility] SN [id number] Ventricular Lead MDT 4076-52 [id number] Stimulation Thresholds & Impedance Measurements: Ventricular Lead R 4.8 mV 0.8 V 0.75 ms 564 ohm Madhav Pacing Parameters Pacing mode VVIR Lower rate 60 ppm Patient Problems: Problems Problem Status Onset Complete heart block Acute Abdominal pain Acute Elevated troponin I level Acute Chest pain Acute Chronic Disease Mgmt/Transitional Care Acute Elevated troponin Acute
--- NOTE | 2016-07-07 16:19 | CPEKG ---
Heart Rate: 60 RR Interval: 1000 P-R Interval: 214 QRSD Interval: 132 QT Interval: 452 QTC Interval: 452 P Delphos: 0 QRS Delphos: -78 T Wave Delphos: 85 EKG Severity - ABNORMAL ECG - EKG Impression: VENTRICULAR-PACED RHYTHM Electronically Signed By: Darrick Bentley 08-Jul-2016 09:06:43
== END | disposition home or self-care (01) ==
LOC: FCATH 12:26
PROVIDERS: ATTEND Internal Medicine Cardiovascular Disease
PROC: 0JPT0PZ Removal of Cardiac Rhythm Related Device from Trunk Subcutaneous Tissue and Fascia, Open Approach (ICD-10-PCS; principal; 2016-07-07)
PROC: 0JH605Z Insertion of Pacemaker, Single Chamber Rate Responsive into Chest Subcutaneous Tissue and Fascia, Open Approach (ICD-10-PCS; principal; 2016-07-07)
DX: Z45.010 Encounter for checking and testing of cardiac pacemaker pulse generator [battery] (principal); I44.2 Atrioventricular block, complete; I25.10 Atherosclerotic heart disease of native coronary artery without angina pectoris; Z95.5 Presence of coronary angioplasty implant and graft; I25.2 Old myocardial infarction
CPT/HCPCS: C1786; J1644; J1885; J2250; J3010; J3370

== ENCOUNTER 2016-09-08 15:59 | Emergency (ER) | payer OTHER ==
--- NOTE | 2016-09-08 16:03 | EDPHY ---
H & P Allergies/Adverse Reactions: Penicillins Allergy (Intermediate, Verified 04/13/16 16:45) Rash Sulfa (Sulfonamide Antibiotics) Allergy (Intermediate, Verified 04/13/16 16:45) Rash Home Medications: Medication Instructions Recorded Bimatoprost 0.01% [Lumigan 0.01% 1 drops EACHEYE HS 12/19/12 (*)] Eflornithine HCl [Vaniqa] 1 keith TP BID 12/12/13 Donepezil HCl [Aricept] 10 mg PO DAILY 03/10/16 Prasugrel HCl [Effient 5mg (*)] 5 mg PO DAILY #0 tab 03/12/16 Aspirin [Aspirin 325 mg (*)] 325 mg PO DAILY 100 Days 03/13/16 amLODIPine BESYLATE [Norvasc 10 mg 10 mg PO DAILY #30 tab 03/13/16 (*)] Ipratropium 0.06% Nasal [Atrovent 2 sprays EACHNARE TID PRN 03/21/16 0.06% Nasal] Famotidine [Pepcid 20 MG (*)] 20 mg PO BID #60 tab 03/22/16 Nitroglycerin 0.4 mg SL Q5M PRN #30 tab 04/14/16 Herbals/Supplements -Info Only 1 ea PO DAILY 07/07/16 Medical Decision Making - Diagnostics Imaging Results: Imaging Impressions Head CTA 09/08/16 16:01 Impression: 1. Mild atherosclerotic disease bilateral carotid bulbs without flow-limiting stenosis. 2. No evidence of carotid or vertebral dissection. 3. Patent bilateral vertebral arteries. Measurement of carotid stenosis is based on the residual internal carotid diameter with [place] Symptomatic Carotid Endarterectomy Trial (NASCET) based stenosis levels. CT Angiogram of the Brain Clinical Indications: Stroke protocol. Right-sided weakness. Currently on anticoagulants. Technique: CT angiogram of the brain and neck was performed with the uneventful intravenous administration of 85 mL Isovue-370 contrast. Multiplanar reconstructions including 3D reconstructions performed and evaluated on [employer] workstation in order to better evaluate the rosebud [place] vessels. Images were manipulated by the radiologist at the computer workstation. Dose reduction techniques were utilized. Findings: Major vessels of the rosebud of [place] are adequately displayed, demonstrating complete occlusion of the left middle cerebral artery at the origin with only minimal flow of contrast in the distal left MCA branches. origin of bilateral posterior cerebral arteries with very small P1 segments. Fenestration of the proximal basilar artery. Bilateral anterior cerebral artery, right middle cerebral artery, and vertebral basilar system appear patent without additional thrombi. No definite aneurysms. Impression: 1. 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 2. Patent vertebrobasilar system, right MCA, and bilateral ALVARO branches. Findings discussed with Emergency Department physician, Harry Grant MD, at 1625 hours, 09/08/2016. Final report concurs with initial preliminary interpretation. Neck CTA 09/08/16 16:01 Impression: 1. Mild atherosclerotic disease bilateral carotid bulbs without flow-limiting stenosis. 2. No evidence of carotid or vertebral dissection. 3. Patent bilateral vertebral arteries. Measurement of carotid stenosis is based on the residual internal carotid diameter with [place] Symptomatic Carotid Endarterectomy Trial (NASCET) based stenosis levels. CT Angiogram of the Brain Clinical Indications: Stroke protocol. Right-sided weakness. Currently on anticoagulants. Technique: CT angiogram of the brain and neck was performed with the uneventful intravenous administration of 85 mL Isovue-370 contrast. Multiplanar reconstructions including 3D reconstructions performed and evaluated on [employer] workstation in order to better evaluate the rosebud of [place] vessels. Images were manipulated by the radiologist at the computer workstation. Dose reduction techniques were utilized. Findings: Major vessels of the rosebud of [place] are adequately displayed, demonstrating complete occlusion of the left middle cerebral artery at the origin with only minimal flow of contrast in the distal left MCA branches. origin of bilateral posterior cerebral arteries with very small P1 segments. Fenestration of the proximal basilar artery. Bilateral anterior cerebral artery, right middle cerebral artery, and vertebral basilar system appear patent without additional thrombi. No definite aneurysms. Impression: 1. 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 2. Patent vertebrobasilar system, right MCA, and bilateral ALVARO branches. Findings discussed with Emergency Department physician, Harry Grant MD, at 1625 hours, 09/08/2016. Final report concurs with initial preliminary interpretation. Imaging: Discussed imaging studies w/ auto body mechanic Radiologist, I viewed and interpreted images myself ED Course/Re-evaluation: CHIEF COMPLAINT: Stroke alert HISTORY OF PRESENT ILLNESS: The patient is an anticoagulated 81 y/o female, with history of prior CVA, arriving emergently as a Stroke Alert after she was found down 20 minutes prior to arrival here with right-sided deficits. She was last seen normal around 13:30 hours, about 2.5 hours ago. EMS found her initially able to follow some commands with right-sided weakness and left gaze preference. She was nonverbal throughout their contact. By arrival here, she is only responsive to painful stimuli. EMS was unable to provide much medical history as the patient's was a barrier to their care on scene. Her HR was initially 160 and improved to 140 with IV fluids. Prehospital BGL 121. REVIEW OF SYSTEMS: A 10 point review of systems was performed and is negative with the exception of the elements mentioned in the history of present illness. PHYSICAL EXAM: HR, BP, O2 Sat, RR. Temp noted General Appearance: Responsive to painful stimuli only, eyes fixed to the left Head: Atraumatic without scalp tenderness or obvious injury Eyes: Pupils equal, round, reactive to light and accommodation, no trauma, no injection. Fixed to the left. Ears: Clear bilaterally, no perforation, normal landmarks Nose: Atraumatic, no rhinorrhea, clear. Throat: Mucus membranes moist. Neck: No lymphadenopathy. Respiratory: No retractions, no distress, no wheezes, and no accessory muscle use. Lungs are clear to auscultation bilaterally. Cardiovascular: Regular rate and rhythm, no murmurs, rubs, or gallops. Good capillary refill all extremities. Gastrointestinal: Abdomen is soft, no apparent tenderness Musculoskeletal: Atraumatic. Neurological: Responsive to painful stimuli only, dense right hemiparesis per EMS, eyes fixed to the left Skin: No rashes, good turgor, no nodules on palpation. 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 PAST SURGICAL HISTORY: Pacemaker, cardiac stents in RCA SOCIAL HISTORY: , lives with Prior medical records reviewed including admission 04/13/16 for chest pain. DIAGNOSTICS/PROCEDURES/CRITICAL CARE TIME: Head CT: No intracranial hemorrhage Head and Neck CTA: Acute left MCA occlusion Critical care time spent by me, Dr. Grant, exclusively with this patient was 60 minutes, exclusive of PA time and exclusive of procedures. The organ system at risk was neurovascular and I ordered immediate imaging, consulted with neurologists, and emergently transferred the patient to a neurosurgeon at [facility] to prevent worsening of the patients condition. DIFFERENTIAL DIAGNOSIS: The differential diagnosis for the patient's neurologic deficits included but was not limited to peripheral causes, central causes including CVA, TIA, electrolyte abnormalities and dehydration, cardiogenic causes, atypical causes like migraine syndrome. MEDICAL DECISION MAKIN: Met EMS upon arrival and took report. This is an 81 y/o female with history of prior CVA and anticoagulant use who presents with dense right hemiplegia, fixed left gaze, and only responsive to painful stimuli. Last seen normal 2.5 hours ago. She is not a candidate for TPA due to anticoagulant use. Further history from EMS limited. ISTAT drawn, CBC and CHEM ordered. 1559: Patient sent to imaging for head CT and CTA. 1613: Preliminary head CT report from Dr. Gray, radiology, shows no hemorrhage. 1624: CTA shows left MCA occlusion. I discussed imaging and my recommendation to transport patient via helicopter to [facility] for surgical intervention with the patient's . He consents to transfer. Flight team notified at 1627. The patient is now moving her right side foot slightly with painful stimuli. Continues to have fixed left gaze. 1632: Consulted with [place] neurologist, Dr. Green. He agrees with emergent transport decision. Interventional team will be waiting upon patient's arrival. 1651: Patient finally left department with HEMS team. - Data Points Laboratory Results: Laboratory Results 09/08/16 14:10 09/08/16 14:10 09/08/16 09/08/16 09/08/16 14:10 14:10 14:10 WBC 5.98 10^3/uL 10^3/uL (3.80-9.50) RBC 4.25 10^6/uL 10^6/uL (4.18-5.33) Hgb 14.4 g/dL g/dL (12.6-16.3) Hct 43.1 % % (38.0-47.0) MCV 101.4 fL H fL (81.5-99.8) MCH 33.9 pg pg (27.9-34.1) MCHC 33.4 g/dL g/dL (32.4-36.7) RDW 13.2 % % (11.5-15.2) Plt Count 293 10^3/uL 10^3/uL (150-400) MPV 10.2 fL fL (8.7-11.7) Neut % (Auto) 57.6 % % (39.3-74.2) Lymph % (Auto) 28.9 % % (15.0-45.0) Rich % (Auto) 11.0 % % (4.5-13.0) Eos % (Auto) 1.2 % % (0.6-7.6) Baso % (Auto) 1.0 % % (0.3-1.7) Nucleat RBC Rel Count 0.0 % % (0.0-0.2) Absolute Neuts (auto) 3.44 10^3/uL 10^3/uL (1.70-6.50) Absolute Lymphs (auto) 1.73 10^3/uL 10^3/uL (1.00-3.00) Absolute Monos (auto) 0.66 10^3/uL 10^3/uL (0.30-0.80) Absolute Eos (auto) 0.07 10^3/uL 10^3/uL (0.03-0.40) Absolute Basos (auto) 0.06 10^3/uL 10^3/uL (0.02-0.10) Absolute Nucleated RBC 0.00 10^3/uL 10^3/uL (0-0.01) Immature Gran % 0.3 % % (0.0-1.1) Immature Gran # 0.02 10^3/uL 10^3/uL (0.00-0.10) PT 12.9 SEC SEC (12.0-15.0) INR 0.98 (0.83-1.16) APTT 25.8 SEC SEC (23.0-38.0) Sodium 141 mEq/L mEq/L (134-144) Potassium 4.4 mEq/L mEq/L (3.5-5.2) Chloride 106 mEq/L mEq/L (97-110) Carbon Dioxide 23 mEq/l mEq/l (22-31) Anion Gap 12 mEq/L mEq/L (8-16) BUN 32 mg/dL H mg/dL (7-23) Creatinine 1.0 mg/dL mg/dL (0.6-1.0) Estimated GFR 53 Glucose 90 mg/dL mg/dL (70-100) Calcium 10.1 mg/dL mg/dL (8.5-10.4) Total Bilirubin 0.8 mg/dL mg/dL (0.1-1.4) AST 32 IU/L IU/L (14-46) ALT 35 IU/L IU/L (9-52) Alkaline Phosphatase 108 IU/L IU/L (38-126) Total Protein 7.2 g/dL g/dL (6.3-8.2) Albumin 4.5 g/dL g/dL (3.5-5.0) Departure - Departure Disposition: Home, Routine, Self-Care Clinical Impression: Acute ischemic left MCA stroke, Right hemiparesis Condition: Critical Referrals: Patient,NotPresent [Unknown] - As per Instructions Report Scribed for: Harry Grant Report Scribed by: Sveta Colunga Date of Report: 09/08/16 Time of Report: 16:34
[2016-09-08] MEDS ORDERED: IOPAMIDOL (ISOVUE 370) 100 ML BTL IV ONE ×2 (16:14→17:09)
[2016-09-08 16:20] LABS: % IMMATURE GRANULYOCYTES 0.3 % (0.0-1.1); ABSOLUTE IMMATURE GRANULOCYTES 0.02 10^3/uL (0.00-0.10); ADD DIFF? NO; ADD MORPH? NO; ADD SCAN? NO; ATYPICAL LYMPHOCYTE FLAG 0 (0-99); FRAGMENT RBC FLAG 0 (0-99); HEMATOCRIT 43.1 % (38.0-47.0); HEMOGLOBIN 14.4 g/dL (12.6-16.3); LEFT SHIFT FLG 0 (0-99); LIPEMIA HEMOLYSIS FLAG 80 (0-99); MEAN CELL HEMOGLOBIN 33.9 pg (27.9-34.1); MEAN CELL HEMOGLOBIN CONCENTR. 33.4 g/dL (32.4-36.7); MEAN CELL VOLUME 101.4 fL (81.5-99.8); MEAN PLATELET VOLUME 10.2 fL (8.7-11.7); PLATELET CLUMPS FLAG 20 (0-99); PLATELET COUNT 293 10^3/uL (150-400); RED BLOOD CELL COUNT 4.25 10^6/uL (4.18-5.33); RED CELL DISTRIBUTION WIDTH 13.2 % (11.5-15.2)
[2016-09-08 16:30] LABS: INR 0.98 (0.83-1.16); PROTIME(PATIENT) 12.9 SEC (12.0-15.0)
[2016-09-08 16:31] LABS: APTT 25.8 SEC (23.0-38.0)
[2016-09-08 16:43] LABS: ALANINE AMINOTRANSFERASE 35 IU/L (9-52); ALBUMIN 4.5 g/dL (3.5-5.0); ALKALINE PHOSPHATASE 108 IU/L (38-126); ANION GAP 12 mEq/L (8-16); ASPARTATE AMINOTRANSFERASE 32 IU/L (14-46); BILIRUBIN,TOTAL 0.8 mg/dL (0.1-1.4); CALCIUM 10.1 mg/dL (8.5-10.4); CARBON DIOXIDE 23 mEq/l (22-31); CHLORIDE 106 mEq/L (97-110); GLOMERULAR FILTRATION RATE 53; GLUCOSE 90 mg/dL (70-100); POTASSIUM 4.4 mEq/L (3.5-5.2); SODIUM 141 mEq/L (134-144); TOTAL PROTEIN 7.2 g/dL (6.3-8.2)
[2016-09-08 17:18] VITALS: PULSE 60; TEMP 98.6
[2016-09-08 17:47] VITALS: BP 126/69; RESP 32; O2SAT 100
== END 2016-09-08 17:00 | disposition home or self-care (01) ==
LOC: EDUNIT#
DX: I63.412 Cerebral infarction due to embolism of left middle cerebral artery (principal); I25.10 Atherosclerotic heart disease of native coronary artery without angina pectoris; G81.91 Hemiplegia, unspecified affecting right dominant side; Z79.82 Long term (current) use of aspirin; Z95.0 Presence of cardiac pacemaker; Z95.5 Presence of coronary angioplasty implant and graft
CPT/HCPCS: 70450; 70496; 70498; 99285; Q9967

== ENCOUNTER 2016-09-14 14:38 | Inpatient (IN) | payer OTHER ==
[2016-09-17] MEDS ORDERED: QUEtiapine FUMARATE 25 MG TAB PO SCH (17:00)
--- NOTE | 2016-09-17 17:51 | PDOREHIP ---
Admission [facility] - Admission - 3 Day Assessment Period Admission Date/Day 1: 09/17/16 Day 2: 09/18/16 Day 3: 09/19/16 - Active Diagnoses Comorbidities and Co-existing Conditions at Admission: 73640. None of the Above - Skin Conditions Unhealed Pressure Ulcer (1 or more/Stage 1 or >)-Admission: 0. No
[2016-09-17] MEDS: ENOXAPARIN 30 MG/0.3 ML SYR SC SCH (18:01)
--- NOTE | 2016-09-17 18:45 | GHP ---
[f rep st] HISTORY AND PHYSICAL POST ADMISSION PHYSICIAN EVALUATION AND REHABILITATION TREATMENT PLAN DATE OF ADMISSION: 09/17/2016 DATE OF EVALUATION: 09/17/2016 TIME OF EVALUATION: 1655. REFERRING FACILITY: [facility]. REFERRING PHYSICIAN: Dr. Roa IMPAIRMENT GROUP: 1.2. DATE OF ONSET: 09/08/2016. CONSULTING PHYSICIAN: She was seen in consultation by neurologist, Dr. Reyna and by the Pulmonary/Critical care team. REHABILITATION DIAGNOSIS: Cerebrovascular accident, left M1 branch of the middle cerebral artery, status post thrombectomy. ETIOLOGIC DIAGNOSIS: Right body involvement (left brain). DATE OF SURGERY: She had thrombectomy on 09/08/2016. HISTORY OF PRESENT ILLNESS: This patient presented initially at the emergency department of [facility]. She was found down 20 minutes prior to arrival with right-sided deficits. Brain imaging at that time showed a possible acute thrombus in the left middle cerebral artery and no hemorrhage. She also has severe cerebral atrophy and microvascular ischemic gliosis. She was flown to [facility] where she underwent a successful thrombectomy and had improvement in her ability to move the right side of her body. She had agitation while in the hospital and wanted to go home. She comes to inpatient rehabilitation with new prescriptions for quetiapine and ciprofloxacin , so presumably she was treated for agitation with quetiapine and the workup may have included a urinalysis which was positive for urinary tract infection and so ciprofloxacin was begun. She and her deny that she has had any symptoms of urinary tract infection. Brain imaging was repeated at [facility] on 09/09 and 09/10 and showed small acute ischemic infarcts involving the left caudate head in the left lentiform nucleus and evidence of a small extravascular bleed along the M1 segment of the middle cerebral artery. The etiology of her stroke was considered to be most likely embolic. Transthoracic echocardiogram showed severe bi-atrial dilatation raising suspicion of paroxysmal atrial fibrillation ; however, on monitoring there were no dysrhythmias noted. She participated in physical, occupational, and speech therapies and was ready for inpatient rehabilitation. LABS AND STUDIES DURING HER STAY: I do not have a complete list. On 09/10/2016 , comprehensive metabolic profile revealed an elevated chloride at 114. Renal function and electrolytes were otherwise within normal limits. Calcium was slightly low at 8.2 and albumin was slightly low at 3.0, AST was slightly high at 41, otherwise liver function tests were completely within normal limits. On the same day she had a magnesium and phosphorus tested. The phosphorus was slightly low at 20, magnesium was normal. CBC on 09/10/2016, revealed anemia with a hemoglobin of 10.9 and hematocrit of 33.5. She had an elevated MCV at 100.3. Platelet count was normal. PRECAUTIONS: She is a fall risk. She has aspiration precautions. ACTIVE COMORBIDITIES: She has no active tier 1, tier 2, or tier 3 comorbidities. PAST MEDICAL HISTORY: 1. Left-sided cerebrovascular accident 5 years ago with mild residual right sided weakness. Her reports that though they continue to cross-country ski, her kick and glide ability is limited on the right side. 2. Bradycardia with complete heart block. 3. Hypertension. 4. Coronary artery disease. 5. Back pain with radiculopathy. 6. Dementia. 7. Glaucoma. 8. Polymyalgia rheumatica. 9. Gastroesophageal reflux disorder. 10. Diastolic dysfunction. 11. Multiple orthopedic fractures in skiing accidents. PAST SURGICAL HISTORY: She has had pacemaker placement. She has had stenting of the right coronary artery. She has had a cholecystectomy. PRE-HOSPITAL MEDICATIONS: 1. Prasugrel 5 mg p.o. daily. 2. Aspirin 325 mg p.o. daily. 3. Amlodipine. 4. Famotidine. 5. Donepezil 10 mg p.o. at bedtime. 6. Memantine 5 mg p.o. daily. 7. Bimatoprost 0.01% one drop each eye at bedtime. ALLERGIES: Listed to penicillin and sulfa. ADMISSION MEDICATIONS: 1. Aspirin 325 mg p.o. daily. 2. Atorvastatin 40 mg p.o. at bedtime. 3. Bimatoprost 1 drop each eye at bedtime. 4. Donepezil 10 mg p.o. at bedtime. 5. Famotidine 20 mg p.o. twice daily. 6. Ipratropium 2 sprays each nares twice daily. 7. Memantine 5 mg p.o. daily. 8. Quetiapine 12.5 mg p.o. daily. 9. Ciprofloxacin 250 mg p.o. twice daily. 10. Enoxaparin 30 mg sc QD at 1800 FAMILY HISTORY: Noncontributory. PSYCHOSOCIAL HISTORY: She is . She lives with her . She has 5 children, 2 of whom live in [facility] [place] and the rest are out of state. 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 She has a remote history of tobacco smoking. Though she has significant memory loss, she continues to be capable of cleaning the house and cooking meals. REVIEW OF SYSTEMS: She reports good return of movement to the right upper and lower extremities. She denies sensory loss, headache or tingling of the extremities. She denies chest pain or palpitations. She denies having had urinary frequency, dysuria, flank pain or fevers and chills. She denies nausea , vomiting, constipation, or diarrhea. She denies skin rash or skin breakdown, and otherwise a 10-point review of systems is negative. PHYSICAL EXAMINATION: VITAL SIGNS: Blood pressure is 122/64, heart rate is 60 , respiratory rate is 16, oxygen saturation is 96% on room air, temperature is 36.4 degrees centigrade. Her weight is 45.3 kg for a body mass index of 19.5. Chart review reveals that weight overall has been stable since February of 2016 , though she has recorded weight increased to 46.3 kg in March, 46 kg in August and currently 45.3 kg. GENERAL: This is a well-nourished, well-developed woman , who appears her chronologic age, cooperative and in no acute distress. HEENT : Extraocular movements are intact. Pupils are equal, round, and reactive to light. Mucous membranes are moist. She has a somewhat crowded airway, Mallampati class 3. Dentition is in good condition. NECK: Supple. HEART: There is a regular rate and rhythm with no murmurs, rubs, or gallops. LUNGS: Clear to auscultation bilaterally. ABDOMEN: Soft, nontender, nondistended with normoactive bowel sounds. There is no palpable bladder. There is no flank pain. EXTREMITIES: There is no cyanosis, clubbing, or edema. Radial and dorsalis pedis pulses are 2+ bilaterally. NEUROLOGIC: She is alert. She is oriented to her general situation but does not recall that she has just had a stroke and thrombectomy. She is disoriented to the date and time. Cranial nerves 2-12 are grossly intact. She has 4/5 strength in the left upper extremity on the biceps, otherwise her strength is overall 5/5. Sensation is intact to light touch. She appears to have a visual field defect in the right upper and lower quadrants; however, she also has loss of peripheral vision on the left side. Deep tendon reflexes are 2+ bilaterally at the biceps, patella, and Achilles tendons. Plantar reflexes upgoing bilaterally. SKIN: There is no rash or breakdown noted. CURRENT LEVEL OF FUNCTION PER THE PRE-ADMISSION SCREEN: Regarding diet, feeding , and swallowing, she required setup and supervision and she comes to inpatient rehabilitation on a dysphagia 1 and nectar thick liquid diet texture. Regarding toileting, she required maximal assistance. For bed mobility, she required standby assistance with minimal cues. For transfers, she required minimal assistance to moderate assistance with a front-wheeled walker. Balance was poor but improving. Endurance was poor but improving. She ambulated 30 feet with a front-wheeled walker, contact guard assist and maximal voice cues. Regarding communication, she was noted to have dysarthria. Regarding communication and cognition, she was noted to be alert, awake, answering questions and following commands. IMPRESSION: This patient is an 81-year-old woman who has had her second cerebrovascular accident. She has a history of dementia. Given her history of stroke, it is more likely vascular, though there may be a component of Alzheimer 's as well. She had a successful thrombectomy and return of motor strength to the right upper and lower extremities, but she continues to have mild left upper extremity weakness, which is likely a residual of her previous stroke. The etiology of her stroke, given the location of the clot and the distribution of infarcts, was likely embolic and she has severely dilated atria of her heart making paroxysmal atrial fibrillation a likely etiology; however on monitoring in the hospital, no atrial fibrillation was detected. She is appropriate for inpatient rehabilitation where she will benefit from physical and occupational therapies to optimize her mobility and activities of daily living, speech and language pathology regarding swallowing and cognition, nursing care regarding fall risk, bowel and bladder, skin integrity, medication administration, and neurologic education for the patient and her family, and physician care regarding risk for deep venous thrombosis, risk for infection including pneumonia and comorbidities, including possible paroxysmal atrial fibrillation, coronary artery disease, and congestive heart failure with diastolic dysfunction and pulmonary hypertension. Her goal is to complete inpatient rehabilitation and then return home with her , home health care, durable medical equipment as needed and possibly extra help for her to be safe at home. For a safe discharge, she will need to achieve supervision to modified independence for cognition, mobility, ADLs, and medication management. There will be neurologic education for her and her regarding strokes and dementia, and she will need to have any durable medical equipment that is needed and Home Health Services established prior to discharge. She will have therapy with physical therapy, occupational therapy, and speech and language pathology for 60 minutes per day per discipline on 5-7 days of the week. Her expected duration of stay is 12-14 days. It is anticipated that upon discharge, she will continue to benefit from home health services, including speech and language pathology, occupational therapy, and physical therapy. Additionally, she and her will benefit from a stroke support group. ASSESSMENT AND PLAN: 1. Cerebrovascular accident of the right M1 branch of the middle cerebral artery on 09/08/16, status post successful thrombectomy with dysphagia and ataxia. Physical therapy and occupational therapy to optimize mobility and activities of daily living. 2. Dementia, premorbid and dysphagia to be addressed by Speech and Language Pathology. 3. Secondary prevention for stroke. She has been discharged on aspirin as well as atorvastatin. Her blood pressure will be monitored closely and will be treated if it is significantly elevated. Consider full anticoagulation. Will consider further discussion with Neurology and Cardiology regarding whether there is any indication for anticoagulation or to restart prasugrel. 4. Likely hospital delirium. She has been discharged on quetiapine. This will be continued initially but will have a low threshold to discontinue if she does not appear to have any behavioral issues. 5. Question of urinary tract infection. She does not appear to have had any symptoms, so the ciprofloxacin will not be continued. If she does develops symptoms consistent with urinary tract infection, we will evaluate and treat appropriately. 6. Regarding dementia, continue donepezil and memantine. 7. History of gastroesophageal reflux disorder. Continue famotidine. 8. Glaucoma. Continue bimatoprost eyedrops. 9. Congestive heart failure with diastolic dysfunction and pulmonary hypertension. Pulmonary hypertension was not present on a prior echocardiogram in March of this year. Unclear etiology at present. She will be observed and oxygen will be available as needed. 10. Possible obstructive sleep apnea. Could be etiologic in terms of her dementia as well as hypertension. She has a crowded airway and though she is not overweight, she has a short jaw and reports that she snores. We will do overnight oximetry and if she needs oxygen at night, this will be provided and if that is the case, she will be referred to an outpatient sleep study. 11. Anticoagulation. Per report, she was treated with enoxaparin at the hospital. Enoxaparin dosed for her weight and age will be continued until she demonstrates improved mobility. 12. Anemia. Will recheck a CBC. 13. Dysphagia on thickened liquids. We will check a basic metabolic profile to assure that she is adequately hydrated. 14. Advanced directives. A MOST form was in her chart which indicates do not resuscitate and antibiotics for comfort only, and these wishes will be respected during her stay. /[id number]/MODL MTDD
[2016-09-17] MEDS ORDERED: CIPROFLOXACIN 250 MG TAB PO SCH (20:00)
[2016-09-17] MEDS: ATORVASTATIN CALCIUM 40 MG TAB PO SCH (20:25)
[2016-09-17] MEDS: FAMOTIDINE 20 MG TAB PO SCH (20:25)
[2016-09-17] MEDS: DONEPEZIL HCL 5 MG TAB PO SCH (20:25)
[2016-09-18] MEDS: IPRATROPIUM 0.06% NASAL SPRAY EACHNARE SCH ×3 (00:32→21:03)
[2016-09-18] MEDS: BIMATOPROST 0.01% 2.5 ML OPHT.BTL EACHEYE SCH ×2 (00:32→21:03)
[2016-09-18 07:33] LABS: % IMMATURE GRANULYOCYTES 0.3 % (0.0-1.1); ABSOLUTE IMMATURE GRANULOCYTES 0.02 10^3/uL (0.00-0.10); ADD DIFF? NO; ADD MORPH? NO; ADD SCAN? NO; ATYPICAL LYMPHOCYTE FLAG 20 (0-99); FRAGMENT RBC FLAG 0 (0-99); HEMATOCRIT 35.7 % (38.0-47.0); HEMOGLOBIN 11.7 g/dL (12.6-16.3); LEFT SHIFT FLG 10 (0-99); LIPEMIA HEMOLYSIS FLAG 80 (0-99); MEAN CELL HEMOGLOBIN 33.9 pg (27.9-34.1); MEAN CELL HEMOGLOBIN CONCENTR. 32.8 g/dL (32.4-36.7); MEAN CELL VOLUME 103.5 fL (81.5-99.8); MEAN PLATELET VOLUME 10.3 fL (8.7-11.7); PLATELET CLUMPS FLAG 0 (0-99); PLATELET COUNT 318 10^3/uL (150-400); RED BLOOD CELL COUNT 3.45 10^6/uL (4.18-5.33); RED CELL DISTRIBUTION WIDTH 12.6 % (11.5-15.2)
[2016-09-18 07:58] LABS: ANION GAP 9 mEq/L (8-16); CALCIUM 9.4 mg/dL (8.5-10.4); CARBON DIOXIDE 26 mEq/l (22-31); CHLORIDE 109 mEq/L (97-110); CREATININE 0.9 mg/dL (0.6-1.0); GLOMERULAR FILTRATION RATE 60; GLUCOSE 78 mg/dL (70-100); POTASSIUM 4.5 mEq/L (3.5-5.2); SODIUM 144 mEq/L (134-144)
[2016-09-18] MEDS ORDERED: ENOXAPARIN 30 MG/0.3 ML SYR SC SCH (09:00)
[2016-09-18] MEDS: FAMOTIDINE 20 MG TAB PO SCH ×2 (09:14→19:38)
[2016-09-18] MEDS: MEMANTINE HCL 5 MG TAB PO SCH (09:14)
[2016-09-18] MEDS: ASPIRIN 325 MG TAB PO SCH (09:14)
--- NOTE | 2016-09-18 09:28 | SOAPPROG ---
SOAP Progress Note Assessment/Plan: Assessment: * Cerebrovascular accident of the right M1 branch of the middle cerebral artery on 09/08/16, status post successful thrombectomy with dysphagia and ataxia. Physical therapy and occupational therapy to optimize mobility and activities of daily living. * Dementia, premorbid, and dysphagia to be addressed by Speech and Language Pathology. * Secondary prevention for stroke. She has been discharged on aspirin as well as atorvastatin. Her blood pressure will be monitored closely and will be treated if it is significantly elevated. Consider full anticoagulation. Needs 30 day event monitor to r/o occult AFib. * CAD s/p stenting. D/W Dr. Melton, Cardiology. Restart prasugrel 09/18/16. * Likely hospital delirium. She has been discharged on quetiapine. No behavioral issues noted; will change to PRN for agitation; D/C if she doesn't need it. * Question of urinary tract infection. No symptoms, so the ciprofloxacin ordered in the hospital has been d/c'd. Monitor for symptoms consistent with urinary tract infection. * Congestive heart failure with diastolic dysfunction and pulmonary hypertension. Pulmonary hypertension was not present on a prior echocardiogram in March of this year. Unclear etiology at present. She will be observed and oxygen will be available as needed. * Possible obstructive sleep apnea. Could be etiologic in terms of her dementia as well as hypertension. She has a crowded airway and though she is not overweight, she has a short jaw and reports that she snores. We will do overnight oximetry. Chronic/stable conditions: * Dementia, continue donepezil and memantine. * History of gastroesophageal reflux disorder. Continue famotidine. * Glaucoma. Continue bimatoprost eyedrops. * Anticoagulation. Continue enoxaparin pending improved mobility. * Anemia. Improving on CBC 09/18/16. * Dysphagia on thickened liquids. Basic metabolic profile 09/18/16 not c/w dehydration. 09/18/16 10:55 Subjective: No complaints. Slept well. Denies pain, f/c, cough/dyspnea. Objective: Vital Signs Temp Pulse Resp BP Pulse Ox 36.7 C 60 16 150/89 H 94 09/18/16 05:31 09/18/16 05:31 09/18/16 05:31 09/18/16 05:31 09/18/16 05:31 Laboratory Results 09/18/16 06:10 09/18/16 06:10 09/17/16 09/18/16 09/19/16 05:59 05:59 05:59 Intake Total 250 120 Balance 250 120 Physical Exam - Physical Exam General Appearance: WD/WN, alert, no apparent distress Respiratory: normal breath sounds, No crackles, No rhonchi, No wheezing Cardiac/Chest: regular rate, rhythm, No edema Skin: normal color, warm/dry Neuro/Psych: alert, normal mood/affect, abnormal gait (Short steps, slow, with FWW) ICD10 Worksheet Patient Problems: Problems Problem Status Onset Abdominal pain Acute Chest pain Acute Chronic Disease Mgmt/Transitional Care Acute Complete heart block Acute Elevated troponin Acute Elevated troponin I level Acute
[2016-09-18] MEDS ORDERED: QUEtiapine FUMARATE 25 MG TAB PO PRN (12:05)
[2016-09-18] MEDS: ENOXAPARIN 30 MG/0.3 ML SYR SC SCH (18:01)
[2016-09-18] MEDS: ATORVASTATIN CALCIUM 40 MG TAB PO SCH (19:38)
[2016-09-18] MEDS: DONEPEZIL HCL 5 MG TAB PO SCH (19:38)
[2016-09-19] MEDS: FAMOTIDINE 20 MG TAB PO SCH ×2 (08:56→20:04)
[2016-09-19] MEDS: MEMANTINE HCL 5 MG TAB PO SCH (08:56)
[2016-09-19] MEDS: ASPIRIN 325 MG TAB PO SCH (08:57)
[2016-09-19] MEDS: PRASUGREL HCL 10 MG TAB PO SCH (08:57)
[2016-09-19] MEDS: IPRATROPIUM 0.06% NASAL SPRAY EACHNARE SCH ×2 (08:58→20:04)
[2016-09-19] MEDS ORDERED: PRASUGREL HCL 5 MG TAB PO SCH (09:00)
--- NOTE | 2016-09-19 12:25 | SOAPPROG ---
SOAP Progress Note Assessment/Plan: Assessment: 81-year-old woman with dementia and a prior stroke five years ago now with a left MCA stroke status post a successful thrombectomy. currently with dysphagia and ataxia. Today's update: results of overnight oximetry is pending, hemoglobin has improved from 10.9 on 09/10 to 11.7 on 09/18. As per cross cover note, she did experience some sun downing last night and resumed quetiapine. She also is using a roll belt for safety. No history of G.I. bleed. This is a new patient to me, and all medical issues are new to me. * Cerebrovascular accident of the right M1 branch of the middle cerebral artery on 09/08/16, status post successful thrombectomy with dysphagia and ataxia. Physical therapy and occupational therapy to optimize mobility and activities of daily living. * Dementia, premorbid, and dysphagia to be addressed by Speech and Language Pathology. * Secondary prevention for stroke. She has been discharged on aspirin as well as atorvastatin. Her blood pressure will be monitored closely and will be treated if it is significantly elevated. Consider full anticoagulation. Needs 30 day event monitor to r/o occult AFib. * CAD s/p stenting. D/W Dr. Melton, Cardiology. Restart prasugrel 09/18/16. * Likely hospital delirium on existing dementia. Continue quetiapine for now given sundowning observed on 09/18 PM * Question of urinary tract infection. No symptoms, so the ciprofloxacin ordered in the hospital has been d/c'd. Monitor for symptoms consistent with urinary tract infection. * Congestive heart failure with diastolic dysfunction and pulmonary hypertension. Pulmonary hypertension was not present on a prior echocardiogram in March of this year. Unclear etiology at present. She will be observed and oxygen will be available as needed. * Possible obstructive sleep apnea. Could be etiologic in terms of her dementia as well as hypertension. She has a crowded airway and though she is not overweight, she has a short jaw and reports that she snores. awaiting results of oximetry study. Chronic/stable conditions: * Dementia, continue donepezil and memantine. * History of gastroesophageal reflux disorder. Continue famotidine. * Glaucoma. Continue bimatoprost eyedrops. * Anticoagulation. Continue enoxaparin pending improved mobility. * Anemia. Improving on CBC 09/18/16. * Dysphagia on thickened liquids. Basic metabolic profile 09/18/16 not c/w dehydration. 09/19/16 12:20 09/19/16 12:26 Subjective: CC: sundowning Overnight patient experience some symptoms of sun downing, please see cross cover note. Reinitiated quetiapine and also initiated roll belt for safety. Patient previously was quite active, enjoyed walking, playing tennis, bicycling , and spending time with family. She and her spend part of their time in [place] and part of their time in [facility]. Nursing concerned that possibly the may have some pre-existing dementia as well, unclear history. Oximetry study was performed overnight, no results yet. Reviewed records and saw that last hemoglobin was 10.9 on 09/10 and was 11.7 on 09/18. Patient denies any pain, numbness, tingling, or weakness that is new, no new shortness of breath or chest pain. Objective: Vital Signs Temp Pulse Resp BP Pulse Ox 36.6 C 60 17 140/82 H 96 09/19/16 08:00 09/19/16 08:00 09/19/16 08:00 09/19/16 08:00 09/18/16 18:47 Laboratory Results 09/18/16 06:10 09/18/16 06:10 09/18/16 09/19/16 09/20/16 05:59 05:59 05:59 Intake Total 250 1106 50 Output Total 275 Balance 250 831 50 Physical Exam - Physical Exam General Appearance: WD/WN, alert, no apparent distress Respiratory: lungs clear, normal breath sounds, No respiratory distress, No accessory muscle use Cardiac/Chest: normal peripheral pulses, regular rate, rhythm, No edema Abdomen: normal bowel sounds, non-tender, soft Skin: normal color, warm/dry, No cyanosis Extremities: No pedal edema, No swelling Neuro/Psych: alert, normal mood/affect, cognition abnormalities (confused), disoriented to place, disoriented to time ICD10 Worksheet Patient Problems: Problems Problem Status Onset Abdominal pain Acute Chest pain Acute Chronic Disease Mgmt/Transitional Care Acute Complete heart block Acute Elevated troponin Acute Elevated troponin I level Acute
[2016-09-19] MEDS: ENOXAPARIN 30 MG/0.3 ML SYR SC SCH (17:25)
[2016-09-19] MEDS: QUEtiapine FUMARATE 25 MG TAB PO SCH (17:25)
[2016-09-19] MEDS: BIMATOPROST 0.01% 2.5 ML OPHT.BTL EACHEYE SCH (20:04)
[2016-09-19] MEDS: ATORVASTATIN CALCIUM 40 MG TAB PO SCH (20:04)
[2016-09-19] MEDS: DONEPEZIL HCL 5 MG TAB PO SCH (20:04)
[2016-09-20] MEDS: IPRATROPIUM 0.06% NASAL SPRAY EACHNARE SCH ×2 (08:30→20:00)
[2016-09-20] MEDS: PRASUGREL HCL 10 MG TAB PO SCH (08:31)
[2016-09-20] MEDS: ASPIRIN 325 MG TAB PO SCH (08:31)
[2016-09-20] MEDS: FAMOTIDINE 20 MG TAB PO SCH ×2 (08:31→19:58)
[2016-09-20] MEDS: MEMANTINE HCL 5 MG TAB PO SCH (08:31)
[2016-09-20] MEDS: amLODIPine BESYLATE 5 MG TAB PO SCH (10:51)
--- NOTE | 2016-09-20 11:28 | SOAPPROG ---
SOAP Progress Note Assessment/Plan: Assessment: 81-year-old woman with dementia and a prior stroke five years ago now with a left MCA stroke status post a successful thrombectomy. currently with dysphagia and ataxia. Today's update: Hypertensive, reinstating amlodipine at 5 mg PO Q day, slightly lower than her home does have amlodipine 10 mg daily. This should be fine in the setting of pulmonary hypertension and diastolic dysfunction, goal to decrease afterload and preserve preload. Family noted that she did have some hallucinations yesterday of people in the room who were not there. Likely represents resolving delirium as noted below. * Cerebrovascular accident of the right M1 branch of the middle cerebral artery on 09/08/16, status post successful thrombectomy with dysphagia and ataxia. Physical therapy and occupational therapy to optimize mobility and activities of daily living. * Dementia, premorbid, and dysphagia to be addressed by Speech and Language Pathology. * Secondary prevention for stroke. She has been discharged on aspirin as well as atorvastatin. Her blood pressure will be monitored closely and will be treated if it is significantly elevated. Consider full anticoagulation. Needs 30 day event monitor to r/o occult AFib. * CAD s/p stenting. D/W Dr. Melton, Cardiology. Restart prasugrel 09/18/16. * Likely hospital delirium on existing dementia. Continue quetiapine for now given observed on 09/18 PM. Continue low dose quetiapine for now. * Question of urinary tract infection. No symptoms, so the ciprofloxacin ordered in the hospital has been d/c'd. Monitor for symptoms consistent with urinary tract infection. * Congestive heart failure with diastolic dysfunction and pulmonary hypertension. Pulmonary hypertension was not present on a prior echocardiogram in March of this year. Unclear etiology at present. She will be observed and oxygen will be available as needed. * Possible obstructive sleep apnea. Could be etiologic in terms of her dementia as well as hypertension. She has a crowded airway and though she is not overweight, she has a short jaw and reports that she snores. awaiting results of oximetry study. Chronic/stable conditions: * Dementia, continue donepezil and memantine. * History of gastroesophageal reflux disorder. Continue famotidine. * Glaucoma. Continue bimatoprost eyedrops. * Anticoagulation. Continue enoxaparin pending improved mobility. * Anemia. Improving on CBC 09/18/16. * Dysphagia on thickened liquids. Basic metabolic profile 09/18/16 not c/w dehydration. 09/19/16 12:20 09/19/16 12:26 09/20/16 11:25 Subjective: CC: htn No acute events overnight. Patient mildly hypertensive, on review of records from 09/08/2016, ER record from Dr. Grant, patient was previously on amlodipine 10 mg daily. She also has a new diagnosis of pulmonary hypertension and diastolic dysfunction. Sleep study was performed without interpretation. Daughter noted some hallucinations yesterday consistent with what she is noticed during the hospitalization. Daughter also noted that the patient is not yet at her prior cognitive baseline. Patient denies any new shortness of breath or chest pain, no numbness, tingling, or weakness. Objective: Vital Signs Temp Pulse Resp BP Pulse Ox 36.6 C 60 16 129/75 H 95 09/20/16 05:34 09/20/16 10:49 09/20/16 05:34 09/20/16 10:51 09/20/16 05:34 Laboratory Results 09/18/16 06:10 09/18/16 06:10 09/19/16 09/20/16 09/21/16 05:59 05:59 05:59 Intake Total 1106 730 240 Output Total 275 Balance 831 730 240 Physical Exam - Physical Exam General Appearance: WD/WN, alert, no apparent distress EENT: No scleral icterus (R), No scleral icterus (L) Respiratory: lungs clear, normal breath sounds, No respiratory distress, No accessory muscle use Cardiac/Chest: regular rate, rhythm, No edema Skin: normal color, warm/dry, No cyanosis Extremities: No pedal edema, No swelling Neuro/Psych: alert, normal mood/affect, disoriented to place, disoriented to time, No disoriented to person ICD10 Worksheet Patient Problems: Problems Problem Status Onset Abdominal pain Acute Chest pain Acute Chronic Disease Mgmt/Transitional Care Acute Complete heart block Acute Elevated troponin Acute Elevated troponin I level Acute
[2016-09-20] MEDS: ENOXAPARIN 30 MG/0.3 ML SYR SC SCH (17:45)
[2016-09-20] MEDS: QUEtiapine FUMARATE 25 MG TAB PO SCH (17:45)
[2016-09-20] MEDS: DONEPEZIL HCL 5 MG TAB PO SCH (19:58)
[2016-09-20] MEDS: ATORVASTATIN CALCIUM 40 MG TAB PO SCH (19:58)
[2016-09-20] MEDS: BIMATOPROST 0.01% 2.5 ML OPHT.BTL EACHEYE SCH (20:00)
[2016-09-21] MEDS: amLODIPine BESYLATE 5 MG TAB PO SCH (08:18)
[2016-09-21] MEDS: FAMOTIDINE 20 MG TAB PO SCH ×2 (08:22→20:16)
[2016-09-21] MEDS: PRASUGREL HCL 10 MG TAB PO SCH (08:22)
[2016-09-21] MEDS: MEMANTINE HCL 5 MG TAB PO SCH (08:22)
[2016-09-21] MEDS: ASPIRIN 325 MG TAB PO SCH (08:22)
[2016-09-21] MEDS: IPRATROPIUM 0.06% NASAL SPRAY EACHNARE SCH ×2 (08:24→21:08)
--- NOTE | 2016-09-21 10:19 | SOAPPROG ---
SOAP Progress Note Assessment/Plan: Assessment: * Cerebrovascular accident of the right M1 branch of the middle cerebral artery on 09/08/16, status post successful thrombectomy with dysphagia and ataxia. Initial FIM 60. Walked 250' FWW, supervision & cues. Festinating gait and episodes of freezing noted. Reduced initiation needing cues, reduced carry- over. With ADLs anaya G&H and bathing, perseverates and needs cues for next step. CGA showering and toileting. Continue physical therapy and occupational therapy to optimize mobility and activities of daily living. * Dementia, premorbid, and dysphagia. Moderate to severe cognitive impairment Decreased expressive language, and elaboration, has word-finding difficulty. Pocketing R cheek and needs cues to clear mouth. DD2, thin liquids. Continue Speech and Language Pathology. Continue donepezil and memantine. 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 Consider trial of Sinemet. * Secondary prevention for stroke. She has been discharged on aspirin as well as atorvastatin. Her blood pressure will be monitored closely and will be treated if it is significantly elevated. Consider full anticoagulation. Needs 30 day event monitor to r/o occult AFib. * CAD s/p stenting. D/W Dr. Melton, Cardiology. Restart prasugrel 09/18/16. * Likely hospital delirium. She has been discharged on quetiapine. Changed to PRN 07/17/16 but sundowning was observed so it has been restarted. * Question of urinary tract infection. No symptoms, so the ciprofloxacin ordered in the hospital has been d/c'd. Monitor for symptoms consistent with urinary tract infection. * Congestive heart failure with diastolic dysfunction and pulmonary hypertension. Pulmonary hypertension was not present on a prior echocardiogram in March of this year. Unclear etiology at present. She will be observed and oxygen will be available as needed. * Possible obstructive sleep apnea? Overnight oximetry with hypoxia totalling approx 2 min. Doubt PB. Chronic/stable conditions: * Dementia, * History of gastroesophageal reflux disorder. Continue famotidine. * Glaucoma. Continue bimatoprost eyedrops. * Anticoagulation. Continue enoxaparin pending improved mobility. * Anemia. Improving on CBC 09/18/16. * Dysphagia on thickened liquids. Basic metabolic profile 09/18/16 not c/w dehydration. Attended staffing, 15 min. D/W case mgmt, nursing. PT, OT, [employer]. Tentative discharge 09/29/16. Family conference prior to discharge. Disposition to depend on level of help available at home. 09/21/16 12:19 Subjective: No complaints. In PT gym. Denies pain, f/c, cough, dyspnea. Objective: Vital Signs Temp Pulse Resp BP Pulse Ox 36.4 C 65 18 146/82 H 96 09/20/16 17:59 09/20/16 17:59 09/20/16 17:59 09/21/16 08:18 09/20/16 17:59 Laboratory Results 09/18/16 06:10 09/18/16 06:10 09/20/16 09/21/16 09/22/16 05:59 05:59 05:59 Intake Total 730 960 180 Balance 730 960 180 - Time Spent With Patient Time Spent With Patient: Greater than 35 minutes floor time today, including more than 50% of time in coordination of care during staffing meeting, and counseling patient. Physical Exam - Physical Exam General Appearance: WD/WN, alert, no apparent distress Respiratory: normal breath sounds, No crackles, No rhonchi, No wheezing Cardiac/Chest: regular rate, rhythm, No edema Skin: normal color, warm/dry Neuro/Psych: alert, normal mood/affect, abnormal gait (Festinating at initiation ), other (No tremor or cogwheeling. Initial gegenhalten RUE resolves subsequently.) ICD10 Worksheet Patient Problems: Problems Problem Status Onset Abdominal pain Acute Chest pain Acute Chronic Disease Mgmt/Transitional Care Acute Complete heart block Acute Elevated troponin Acute Elevated troponin I level Acute
[2016-09-21] MEDS: QUEtiapine FUMARATE 25 MG TAB PO SCH (18:40)
[2016-09-21] MEDS: ENOXAPARIN 30 MG/0.3 ML SYR SC SCH (18:41)
[2016-09-21] MEDS: ATORVASTATIN CALCIUM 40 MG TAB PO SCH (20:16)
[2016-09-21] MEDS: DONEPEZIL HCL 5 MG TAB PO SCH (20:17)
[2016-09-21] MEDS: BIMATOPROST 0.01% 2.5 ML OPHT.BTL EACHEYE SCH (21:08)
[2016-09-22] MEDS: amLODIPine BESYLATE 5 MG TAB PO SCH (09:00)
[2016-09-22] MEDS: FAMOTIDINE 20 MG TAB PO SCH ×2 (09:06→20:00)
[2016-09-22] MEDS: PRASUGREL HCL 10 MG TAB PO SCH (09:06)
[2016-09-22] MEDS: ASPIRIN 325 MG TAB PO SCH (09:06)
[2016-09-22] MEDS: MEMANTINE HCL 5 MG TAB PO SCH (09:06)
[2016-09-22] MEDS: IPRATROPIUM 0.06% NASAL SPRAY EACHNARE SCH ×2 (09:07→23:21)
--- NOTE | 2016-09-22 13:41 | SOAPPROG ---
SOAP Progress Note Assessment/Plan: Assessment: * Cerebrovascular accident of the right M1 branch of the middle cerebral artery on 09/08/16, status post successful thrombectomy with dysphagia and ataxia. Initial FIM 60. Walked 250' FWW, supervision & cues. Festinating gait and episodes of freezing noted. Reduced initiation needing cues, reduced carry- over. Perseverates and needs cues for next step with ADLs anaya G&H and bathing. CGA showering and toileting. Continue physical therapy and occupational therapy to optimize mobility and activities of daily living. * Dementia, premorbid, and dysphagia. Moderate to severe cognitive impairment Decreased expressive language, and elaboration, has word-finding difficulty. Pocketing R cheek and needs cues to clear mouth. DD2, thin liquids. Continue Speech and Language Pathology. Continue donepezil and memantine. 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 D/W Neurologist Dr. Connelly, 09/22/16: would consider trial of Sinemet as outpatient. Follow-up approx 2 weeks after discharge form [facility]patient [facility]. * Secondary prevention for stroke. She has been discharged on aspirin as well as atorvastatin. Her blood pressure will be monitored closely and will be treated if it is significantly elevated. Consider full anticoagulation. Needs 30 day event monitor to r/o occult AFib. * CAD s/p stenting. D/W Dr. Melton, Cardiology. Restart prasugrel 09/18/16. * Likely hospital delirium. She has been discharged on quetiapine. Changed to PRN 07/17/16 but sundowning was observed so it has been restarted. * Question of urinary tract infection. No symptoms, so the ciprofloxacin ordered in the hospital has been d/c'd. Monitor for symptoms consistent with urinary tract infection. * Congestive heart failure with diastolic dysfunction and pulmonary hypertension. Pulmonary hypertension was not present on a prior echocardiogram in March of this year. Unclear etiology at present. She will be observed and oxygen will be available as needed. * Possible obstructive sleep apnea? Overnight oximetry with hypoxia totalling approx 2 min. Doubt PB. Chronic/stable conditions: * Dementia, * History of gastroesophageal reflux disorder. Continue famotidine. * Glaucoma. Continue bimatoprost eyedrops. * Anticoagulation. Continue enoxaparin pending improved mobility. * Anemia. Improving on CBC 09/18/16. * Dysphagia on thickened liquids. Basic metabolic profile 09/18/16 not c/w dehydration. Tentative discharge 09/29/16. Family conference prior to discharge. Disposition to depend on level of help available at home. 09/22/16 13:41 Subjective: No complaints. Slept well. Denies pain, f/c, cough, dyspnea. Objective: Vital Signs Temp Pulse Resp BP Pulse Ox 37.1 C 76 12 129/73 H 91 L 09/21/16 20:00 09/21/16 20:00 09/21/16 20:00 09/22/16 09:00 09/21/16 20:00 Laboratory Results 09/18/16 06:10 09/18/16 06:10 09/21/16 09/22/16 09/23/16 05:59 05:59 05:59 Intake Total 960 1090 354 Balance 960 1090 354 Physical Exam - Physical Exam General Appearance: WD/WN, alert, no apparent distress Respiratory: normal breath sounds, No crackles, No rhonchi, No wheezing Cardiac/Chest: regular rate, rhythm, No edema Skin: normal color, warm/dry Neuro/Psych: alert, normal mood/affect, abnormal gait (Slow, CGA per PT.), other (Full facies, no tremor.) ICD10 Worksheet Patient Problems: Problems Problem Status Onset Abdominal pain Acute Chest pain Acute Chronic Disease Mgmt/Transitional Care Acute Complete heart block Acute Elevated troponin Acute Elevated troponin I level Acute
[2016-09-22] MEDS: QUEtiapine FUMARATE 25 MG TAB PO SCH (17:57)
[2016-09-22] MEDS: ENOXAPARIN 30 MG/0.3 ML SYR SC SCH (17:58)
[2016-09-22] MEDS: DONEPEZIL HCL 5 MG TAB PO SCH (20:00)
[2016-09-22] MEDS: ATORVASTATIN CALCIUM 40 MG TAB PO SCH (20:00)
[2016-09-22] MEDS: BIMATOPROST 0.01% 2.5 ML OPHT.BTL EACHEYE SCH (23:21)
[2016-09-23] MEDS: PRASUGREL HCL 10 MG TAB PO SCH (08:35)
[2016-09-23] MEDS: IPRATROPIUM 0.06% NASAL SPRAY EACHNARE SCH ×2 (08:35→20:21)
[2016-09-23] MEDS: MEMANTINE HCL 5 MG TAB PO SCH (08:35)
[2016-09-23] MEDS: ASPIRIN 325 MG TAB PO SCH (08:35)
[2016-09-23] MEDS: FAMOTIDINE 20 MG TAB PO SCH ×2 (08:35→20:19)
[2016-09-23] MEDS: amLODIPine BESYLATE 5 MG TAB PO SCH (08:36)
--- NOTE | 2016-09-23 12:14 | SOAPPROG ---
SOAP Progress Note Assessment/Plan: Assessment: * Cerebrovascular accident of the right M1 branch of the middle cerebral artery on 09/08/16, status post successful thrombectomy with dysphagia and ataxia. Initial FIM 60 on 09/21/16. Walked 250' FWW, supervision & cues. Festinating gait and episodes of freezing noted. Reduced initiation needing cues, reduced carry-over. Perseverates and needs cues for next step with ADLs anaya G&H and bathing. CGA showering and toileting. Continue physical therapy and occupational therapy to optimize mobility and activities of daily living. * Dementia, premorbid, and dysphagia. Moderate to severe cognitive impairment Decreased expressive language, and elaboration, has word-finding difficulty. Pocketing R cheek and needs cues to clear mouth. DD2, thin liquids. Continue Speech and Language Pathology. Continue donepezil and memantine. 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 D/W Neurologist Dr. Connelly, 09/22/16: would consider trial of Sinemet as outpatient. Follow-up approx 2 weeks after discharge from [facility]. * Secondary prevention for stroke. She has been discharged on aspirin as well as atorvastatin. Her blood pressure will be monitored closely and will be treated if it is significantly elevated. Consider full anticoagulation. Needs 30 day event monitor to r/o occult AFib. * CAD s/p stenting. D/W Dr. Melton, Cardiology. Restart prasugrel 09/18/16. * Likely hospital delirium. She has been discharged on quetiapine. Changed to PRN 07/17/16 but sundowning was observed so it has been restarted. * Question of urinary tract infection. No symptoms, so the ciprofloxacin ordered in the hospital has been d/c'd. Monitor for symptoms consistent with urinary tract infection. * Congestive heart failure with diastolic dysfunction and pulmonary hypertension. Pulmonary hypertension was not present on a prior echocardiogram in March of this year. Unclear etiology at present. She will be observed and oxygen will be available as needed. * Possible obstructive sleep apnea? Overnight oximetry with hypoxia totalling approx 2 min. Doubt PB. Chronic/stable conditions: * Dementia, on memantine and donepezil. * History of gastroesophageal reflux disorder. Continue famotidine. * Glaucoma. Continue bimatoprost eyedrops. * Anticoagulation. Discontinue enoxaparin 09/24/16 due to improved mobility. * Anemia. Improving on CBC 09/18/16. * Dysphagia on thickened liquids. Basic metabolic profile 09/18/16 not c/w dehydration. Tentative discharge 09/29/16. Family conference prior to discharge. Disposition to depend on level of help available at home. 09/23/16 12:10 Subjective: No complaints. Slept well, denies pain, fevers, chills, cough, dyspnea. Physical therapist notes continued festinating gait especially while turning and more so on the stroke involved side. Objective: Vital Signs Temp Pulse Resp BP Pulse Ox 36.3 C 60 19 117/58 L 97 09/23/16 08:00 09/23/16 08:00 09/23/16 08:00 09/23/16 08:36 09/23/16 08:00 Laboratory Results 09/18/16 06:10 09/18/16 06:10 09/22/16 09/23/16 09/24/16 05:59 05:59 05:59 Intake Total 1090 654 Balance 1090 654 Physical Exam - Physical Exam General Appearance: WD/WN, alert, no apparent distress Respiratory: normal breath sounds, No crackles, No rhonchi, No wheezing Cardiac/Chest: regular rate, rhythm, No bradycardia, No tachycardia, No diastolic murmur, No systolic murmur Skin: normal color, warm/dry Neuro/Psych: no motor/sensory deficits, alert, normal mood/affect, abnormal gait (Observed festinating gait while turning using front wheeled walker on contact guard assist per) ICD10 Worksheet Patient Problems: Problems Problem Status Onset Abdominal pain Acute Chest pain Acute Chronic Disease Mgmt/Transitional Care Acute Complete heart block Acute Elevated troponin Acute Elevated troponin I level Acute
[2016-09-23] MEDS: QUEtiapine FUMARATE 25 MG TAB PO SCH (17:28)
[2016-09-23] MEDS: ATORVASTATIN CALCIUM 40 MG TAB PO SCH (20:20)
[2016-09-23] MEDS: BIMATOPROST 0.01% 2.5 ML OPHT.BTL EACHEYE SCH (20:20)
[2016-09-23] MEDS: DONEPEZIL HCL 5 MG TAB PO SCH (20:20)
[2016-09-24] MEDS: MEMANTINE HCL 5 MG TAB PO SCH (08:17)
[2016-09-24] MEDS: amLODIPine BESYLATE 5 MG TAB PO SCH (08:17)
[2016-09-24] MEDS: FAMOTIDINE 20 MG TAB PO SCH ×2 (08:17→20:47)
[2016-09-24] MEDS: ASPIRIN 325 MG TAB PO SCH (08:17)
[2016-09-24] MEDS: PRASUGREL HCL 10 MG TAB PO SCH (08:17)
[2016-09-24] MEDS: IPRATROPIUM 0.06% NASAL SPRAY EACHNARE SCH ×2 (09:38→20:48)
--- NOTE | 2016-09-24 11:52 | SOAPPROG ---
[facility] Progress Note Assessment/Plan: Assessment: 81-year-old woman with dementia and a prior stroke five years ago now with a left MCA stroke status post a successful thrombectomy. currently with dysphagia and ataxia. today's plan - patient is participating well in therapies, I will be in contact with her regarding questions about anti-platelet therapy. He was not in the room today to discuss. No changes to the rehab plan below. * Cerebrovascular accident of the right M1 branch of the middle cerebral artery on 09/08/16, status post successful thrombectomy with dysphagia and ataxia. Initial FIM 60 on 09/21/16. Walked 250' FWW, supervision & cues. Festinating gait and episodes of freezing noted. Reduced initiation needing cues, reduced carry-over. Perseverates and needs cues for next step with ADLs anaya G&H and bathing. CGA showering and toileting. Continue physical therapy and occupational therapy to optimize mobility and activities of daily living. * Dementia, premorbid, and dysphagia. Moderate to severe cognitive impairment Decreased expressive language, and elaboration, has word-finding difficulty. Pocketing R cheek and needs cues to clear mouth. DD2, thin liquids. Continue Speech and Language Pathology. Continue donepezil and memantine. 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 D/W Neurologist Dr. Connelly, 09/22/16: would consider trial of Sinemet as outpatient. Follow-up approx 2 weeks after discharge from [facility]. * Secondary prevention for stroke. She has been discharged on aspirin as well as atorvastatin. Her blood pressure will be monitored closely and will be treated if it is significantly elevated. Consider full anticoagulation. Needs 30 day event monitor to r/o occult AFib. * CAD s/p stenting. D/W Dr. Melton, Cardiology. Restart prasugrel 09/18/16. * Likely hospital delirium. She has been discharged on quetiapine. Changed to PRN 07/17/16 but sundowning was observed so it has been restarted. * Question of urinary tract infection. No symptoms, so the ciprofloxacin ordered in the hospital has been d/c'd. Monitor for symptoms consistent with urinary tract infection. * Congestive heart failure with diastolic dysfunction and pulmonary hypertension. Pulmonary hypertension was not present on a prior echocardiogram in March of this year. Unclear etiology at present. She will be observed and oxygen will be available as needed. * Possible obstructive sleep apnea? Overnight oximetry with hypoxia totalling approx 2 min. Doubt PB. Chronic/stable conditions: * Dementia, on memantine and donepezil. * History of gastroesophageal reflux disorder. Continue famotidine. * Glaucoma. Continue bimatoprost eyedrops. * Anticoagulation. Discontinue enoxaparin 09/24/16 due to improved mobility. * Anemia. Improving on CBC 09/18/16. * Dysphagia on thickened liquids. Basic metabolic profile 09/18/16 not c/w dehydration. Tentative discharge 09/29/16. Family conference prior to discharge. Disposition to depend on level of help available at home. 09/19/16 12:20 09/19/16 12:26 09/20/16 11:25 09/24/16 11:49 Subjective: Chief complaint: Neurological stability No acute events overnight. Patient endorsed that she is sleeping well, no concerns. She was oriented to the approximate time of day. Denies any shortness of breath, chest pain, any new numbness, tingling, or weakness. No was left by staff indicating that her , Manuel, was interested in talking further about the patient's anti-platelet therapy. Plan to discuss with him over the phone or when available. Objective: Vital Signs Temp Pulse Resp BP Pulse Ox 37.0 C 60 16 147/81 H 96 09/24/16 07:50 09/24/16 07:50 09/24/16 07:50 09/24/16 08:17 09/24/16 07:50 Laboratory Results 09/18/16 06:10 09/18/16 06:10 09/23/16 09/24/16 09/25/16 05:59 05:59 05:59 Intake Total 654 860 440 Balance 654 860 440 Physical Exam - Physical Exam General Appearance: WD/WN, alert, no apparent distress Respiratory: lungs clear, normal breath sounds, No respiratory distress, No accessory muscle use Cardiac/Chest: normal peripheral pulses, regular rate, rhythm, No edema Skin: normal color, warm/dry, No cyanosis Neuro/Psych: alert, normal mood/affect, No disoriented to time ICD10 Worksheet Patient Problems: Problems Problem Status Onset Abdominal pain Acute Chest pain Acute Chronic Disease Mgmt/Transitional Care Acute Complete heart block Acute Elevated troponin Acute Elevated troponin I level Acute
[2016-09-24] MEDS: QUEtiapine FUMARATE 25 MG TAB PO SCH (16:16)
[2016-09-24] MEDS: DONEPEZIL HCL 5 MG TAB PO SCH (20:47)
[2016-09-24] MEDS: BIMATOPROST 0.01% 2.5 ML OPHT.BTL EACHEYE SCH (20:47)
[2016-09-24] MEDS: ATORVASTATIN CALCIUM 40 MG TAB PO SCH (20:47)
[2016-09-25] MEDS: ASPIRIN 325 MG TAB PO SCH (09:36)
[2016-09-25] MEDS: FAMOTIDINE 20 MG TAB PO SCH ×2 (09:36→20:16)
[2016-09-25] MEDS: MEMANTINE HCL 5 MG TAB PO SCH (09:36)
[2016-09-25] MEDS: CLOPIDOGREL BISULFATE 75 MG TAB PO SCH (09:37)
[2016-09-25] MEDS: amLODIPine BESYLATE 5 MG TAB PO SCH (10:12)
[2016-09-25] MEDS: IPRATROPIUM 0.06% NASAL SPRAY EACHNARE SCH ×2 (10:14→20:16)
--- NOTE | 2016-09-25 12:05 | SOAPPROG ---
SOAP Progress Note Assessment/Plan: Assessment: * Cerebrovascular accident of the right M1 branch of the middle cerebral artery on 09/08/16, status post successful thrombectomy with dysphagia and ataxia. Initial FIM 60 on 09/21/16. Walked 250' FWW, supervision & cues. Festinating gait and episodes of freezing noted; improving. Reduced initiation needing cues , reduced carry-over. Perseverates and needs cues for next step with ADLs anaya G &H and bathing. CGA showering and toileting. Continue physical therapy and occupational therapy to optimize mobility and activities of daily living. * Dementia, premorbid, and dysphagia. Moderate to severe cognitive impairment Decreased expressive language, and elaboration, has word-finding difficulty. Advanced to regular texture food, thin liquids. Continue Speech and Language Pathology. Continue donepezil and memantine. 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 D/W Neurologist Dr. Connelly, 09/22/16: would consider trial of Sinemet as outpatient. Follow-up approx 2 weeks after discharge from [facility]. * Secondary prevention for stroke. She has been discharged on aspirin as well as atorvastatin. Her blood pressure will be monitored closely and will be treated if it is significantly elevated. Consider full anticoagulation. Needs 30 day event monitor to r/o occult AFib. * CAD s/p stenting. D/W Dr. Melton, Cardiology. Restart prasugrel 09/18/16. * Likely hospital delirium. She has been discharged on quetiapine. Changed to PRN 07/17/16 but sundowning was observed so it has been restarted. * Question of urinary tract infection. No symptoms, so the ciprofloxacin ordered in the hospital has been d/c'd. Monitor for symptoms consistent with urinary tract infection. * Congestive heart failure with diastolic dysfunction and pulmonary hypertension. Pulmonary hypertension was not present on a prior echocardiogram in March of this year. Unclear etiology at present. She will be observed and oxygen will be available as needed. * Possible obstructive sleep apnea? Overnight oximetry with hypoxia totalling approx 2 min. Doubt PB. Chronic/stable conditions: * Dementia, on memantine and donepezil. * History of gastroesophageal reflux disorder. Continue famotidine. * Glaucoma. Continue bimatoprost eyedrops. * Anticoagulation. Discontinue enoxaparin 09/24/16 due to improved mobility. * Anemia. Improving on CBC 09/18/16. * Dysphagia on thickened liquids. Basic metabolic profile 09/18/16 not c/w dehydration. Tentative discharge 09/29/16. Family conference prior to discharge. Disposition to depend on level of help available at home. 09/25/16 12:03 Subjective: No complaints. Denies pain fevers chills cough dyspnea. Objective: Vital Signs Temp Pulse Resp BP Pulse Ox 36.7 C 60 20 126/97 H 97 09/25/16 07:26 09/25/16 07:26 09/25/16 07:26 09/25/16 10:12 09/25/16 07:26 Laboratory Results 09/18/16 06:10 09/18/16 06:10 09/24/16 09/25/16 09/26/16 05:59 05:59 05:59 Intake Total 860 1220 240 Balance 860 1220 240 Physical Exam - Physical Exam General Appearance: WD/WN, alert, no apparent distress Respiratory: No respiratory distress, No accessory muscle use Skin: normal color, warm/dry Neuro/Psych: no motor/sensory deficits, alert, normal mood/affect ICD10 Worksheet Patient Problems: Problems Problem Status Onset Abdominal pain Acute Chest pain Acute Chronic Disease Mgmt/Transitional Care Acute Complete heart block Acute Elevated troponin Acute Elevated troponin I level Acute
[2016-09-25] MEDS: QUEtiapine FUMARATE 25 MG TAB PO SCH (17:20)
[2016-09-25] MEDS: BIMATOPROST 0.01% 2.5 ML OPHT.BTL EACHEYE SCH (20:16)
[2016-09-25] MEDS: ATORVASTATIN CALCIUM 40 MG TAB PO SCH (20:16)
[2016-09-25] MEDS: DONEPEZIL HCL 5 MG TAB PO SCH (20:16)
[2016-09-26] MEDS: ASPIRIN 325 MG TAB PO SCH (08:36)
[2016-09-26] MEDS: FAMOTIDINE 20 MG TAB PO SCH ×2 (08:37→20:21)
[2016-09-26] MEDS: CLOPIDOGREL BISULFATE 75 MG TAB PO SCH (08:37)
[2016-09-26] MEDS: amLODIPine BESYLATE 5 MG TAB PO SCH (08:37)
[2016-09-26] MEDS: MEMANTINE HCL 5 MG TAB PO SCH (08:37)
[2016-09-26] MEDS: IPRATROPIUM 0.06% NASAL SPRAY EACHNARE SCH ×2 (08:38→20:20)
--- NOTE | 2016-09-26 11:29 | SOAPPROG ---
SOAP Progress Note Assessment/Plan: Assessment: * Cerebrovascular accident of the right M1 branch of the middle cerebral artery on 09/08/16, status post successful thrombectomy with dysphagia and ataxia. Initial FIM 60 on 09/21/16. Walked 250' FWW, supervision & cues. Festinating gait mostly when turning. and episodes of freezing noted; improving. Reduced initiation needing cues, reduced carry-over. Perseverates and needs cues for next step with ADLs anaya G&H and bathing. CGA showering and toileting. Continue physical therapy and occupational therapy to optimize mobility and activities of daily living. * Dementia, premorbid, and dysphagia. Moderate to severe cognitive impairment Decreased expressive language, and elaboration, has word-finding difficulty. Advanced to regular texture food, thin liquids. Continue Speech and Language Pathology. Continue donepezil and memantine. 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 D/W Neurologist Dr. Connelly, 09/22/16: would consider trial of Sinemet as outpatient. Improving with PT. Follow-up approx 2 weeks after discharge from Inpatient Rehabilitation. * Secondary prevention for stroke. She has been discharged on aspirin as well as atorvastatin. Her blood pressure will be monitored closely and will be treated if it is significantly elevated. Consider full anticoagulation. Needs 30 day event monitor to r/o occult AFib. * CAD s/p stenting. D/W Dr. Melton, Cardiology. Restarted prasugrel 09/18/16. Discussed with son 09/23/16 and changed to clopidogrel for less expensive medication. * Likely hospital delirium. She has been discharged on quetiapine. Changed to PRN 07/17/16 but sundowning was observed so it has been restarted. * Question of urinary tract infection. No symptoms, so the ciprofloxacin ordered in the hospital has been d/c'd. Monitor for symptoms consistent with urinary tract infection. * Congestive heart failure with diastolic dysfunction and pulmonary hypertension. Pulmonary hypertension was not present on a prior echocardiogram in March of this year. Unclear etiology at present. She is not using O2. Chronic/stable conditions: * Possible obstructive sleep apnea? Overnight oximetry with hypoxia totalling approx 2 min. Doubt PB. * Dementia, on memantine and donepezil. * History of gastroesophageal reflux disorder. Continue famotidine. * Glaucoma. Continue bimatoprost eyedrops. * Anticoagulation. Discontinue enoxaparin 7/13/17 due to improved mobility. * Anemia. Improving on CBC 09/18/16. * Dysphagia on thickened liquids. Basic metabolic profile 09/18/16 not c/w dehydration. Tentative discharge 09/29/16. Family conference prior to discharge. Disposition to depend on level of help available at home. 09/26/16 11:25 Subjective: No complaints. Per nursing slept well, had 1 episode of urinary incontinence overnight. Denies pain, fevers, chills, cough, dyspnea. Objective: Vital Signs Temp Pulse Resp BP Pulse Ox 36.6 C 60 17 140/80 H 95 09/26/16 07:46 09/26/16 07:46 09/26/16 07:46 09/26/16 08:37 09/26/16 07:46 Laboratory Results 09/18/16 06:10 09/18/16 06:10 09/25/16 09/26/16 09/27/16 05:59 05:59 05:59 Intake Total 1220 1030 250 Balance 1220 1030 250 Physical Exam - Physical Exam General Appearance: WD/WN, alert, no apparent distress Respiratory: No respiratory distress, No accessory muscle use Skin: normal color, warm/dry Neuro/Psych: alert, normal mood/affect, abnormal gait (festinatiing when turning. Otherwise medium short steps, withh FWW, narrow base, PT SBA) ICD10 Worksheet Patient Problems: Problems Problem Status Onset Abdominal pain Acute Chest pain Acute Chronic Disease Mgmt/Transitional Care Acute Complete heart block Acute Elevated troponin Acute Elevated troponin I level Acute
[2016-09-26] MEDS: QUEtiapine FUMARATE 25 MG TAB PO SCH (17:35)
[2016-09-26] MEDS: BIMATOPROST 0.01% 2.5 ML OPHT.BTL EACHEYE SCH (20:20)
[2016-09-26] MEDS: DONEPEZIL HCL 5 MG TAB PO SCH (20:21)
[2016-09-26] MEDS: ATORVASTATIN CALCIUM 40 MG TAB PO SCH (20:21)
[2016-09-27] MEDS: FAMOTIDINE 20 MG TAB PO SCH ×2 (08:09→20:06)
[2016-09-27] MEDS: ASPIRIN 325 MG TAB PO SCH (08:09)
[2016-09-27] MEDS: amLODIPine BESYLATE 5 MG TAB PO SCH (08:09)
[2016-09-27] MEDS: CLOPIDOGREL BISULFATE 75 MG TAB PO SCH (08:09)
[2016-09-27] MEDS: IPRATROPIUM 0.06% NASAL SPRAY EACHNARE SCH ×2 (08:13→20:07)
[2016-09-27] MEDS: MEMANTINE HCL 5 MG TAB PO SCH (08:13)
--- NOTE | 2016-09-27 10:50 | SOAPPROG ---
SOAP Progress Note Assessment/Plan: Assessment: * Cerebrovascular accident of the right M1 branch of the middle cerebral artery on 09/08/16, status post successful thrombectomy with dysphagia and ataxia. Initial FIM 60 on 09/21/16. Walked 250' FWW, supervision & cues. Festinating gait mostly when turning. and episodes of freezing noted; improving. Reduced initiation needing cues, reduced carry-over. Perseverates and needs cues for next step with ADLs anaya G&H and bathing. CGA showering and toileting. Continue physical therapy and occupational therapy to optimize mobility and activities of daily living. * Dementia, premorbid, and dysphagia. Moderate to severe cognitive impairment Decreased expressive language, and elaboration, has word-finding difficulty. Advanced to regular texture food, thin liquids. Continue Speech and Language Pathology. Continue donepezil and memantine. 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 D/W Neurologist Dr. Connelly, 09/22/16: would consider trial of Sinemet as outpatient. Improving with PT. Follow-up approx 2 weeks after discharge from Inpatient Rehabilitation. * Secondary prevention for stroke. She has been discharged on aspirin as well as atorvastatin. Her blood pressure will be monitored closely and will be treated if it is significantly elevated. Consider full anticoagulation. Needs 30 day event monitor to r/o occult AFib. * CAD s/p stenting. D/W Dr. Melton, Cardiology. Restarted prasugrel 09/18/16. Discussed with son 09/23/16 and changed to clopidogrel for less expensive medication. * Likely hospital delirium. She has been discharged on quetiapine. Changed to PRN 07/17/16 but sundowning was observed so it has been restarted. * Question of urinary tract infection. No symptoms, so the ciprofloxacin ordered in the hospital has been d/c'd. Monitor for symptoms consistent with urinary tract infection. * Congestive heart failure with diastolic dysfunction and pulmonary hypertension. Pulmonary hypertension was not present on a prior echocardiogram in March of this year. Unclear etiology at present. She is not using O2. Chronic/stable conditions: * Possible obstructive sleep apnea? Overnight oximetry with hypoxia totalling approx 2 min. Doubt PB. * Dementia, on memantine and donepezil. * History of gastroesophageal reflux disorder. Continue famotidine. * Glaucoma. Continue bimatoprost eyedrops. * Anticoagulation. Discontinue enoxaparin 7/13/17 due to improved mobility. * Anemia. Improving on CBC 09/18/16. * Dysphagia on thickened liquids. Basic metabolic profile 09/18/16 not c/w dehydration. Tentative discharge 09/29/16. Family conference prior to discharge. Disposition to depend on level of help available at home. 09/27/16 10:48 Subjective: No complaints this morning. She says she slept well, no cough or dyspnea, no fevers or chills, and not in pain. She has no recollection of what she might have had for breakfast. Objective: Vital Signs Temp Pulse Resp BP Pulse Ox 36.8 C 60 16 143/84 H 96 09/27/16 05:47 09/27/16 05:47 09/27/16 05:47 09/27/16 08:09 09/27/16 05:47 Laboratory Results 09/18/16 06:10 09/18/16 06:10 09/26/16 09/27/16 09/28/16 05:59 05:59 05:59 Intake Total 1030 1118 300 Balance 1030 1118 300 Physical Exam - Physical Exam General Appearance: WD/WN, alert, no apparent distress Respiratory: normal breath sounds, No crackles, No rhonchi, No wheezing Cardiac/Chest: regular rate, rhythm, No edema Skin: normal color, warm/dry Neuro/Psych: no motor/sensory deficits, alert, normal mood/affect ICD10 Worksheet Patient Problems: Problems Problem Status Onset Abdominal pain Acute Chest pain Acute Chronic Disease Mgmt/Transitional Care Acute Complete heart block Acute Elevated troponin Acute Elevated troponin I level Acute
[2016-09-27] MEDS: QUEtiapine FUMARATE 25 MG TAB PO SCH (17:28)
[2016-09-27] MEDS: ATORVASTATIN CALCIUM 40 MG TAB PO SCH (20:07)
[2016-09-27] MEDS: DONEPEZIL HCL 5 MG TAB PO SCH (20:07)
[2016-09-27] MEDS: BIMATOPROST 0.01% 2.5 ML OPHT.BTL EACHEYE SCH (20:07)
[2016-09-28] MEDS: amLODIPine BESYLATE 5 MG TAB PO SCH (09:00)
[2016-09-28] MEDS: IPRATROPIUM 0.06% NASAL SPRAY EACHNARE SCH ×2 (09:00→19:45)
[2016-09-28] MEDS: ASPIRIN 325 MG TAB PO SCH (09:03)
[2016-09-28] MEDS: CLOPIDOGREL BISULFATE 75 MG TAB PO SCH (09:03)
[2016-09-28] MEDS: MEMANTINE HCL 5 MG TAB PO SCH (09:03)
[2016-09-28] MEDS: FAMOTIDINE 20 MG TAB PO SCH ×2 (09:03→19:43)
--- NOTE | 2016-09-28 10:31 | SOAPPROG ---
SOAP Progress Note Assessment/Plan: Assessment: * Cerebrovascular accident of the right M1 branch of the middle cerebral artery on 09/08/16, status post successful thrombectomy with dysphagia and ataxia. Initial FIM 60 on 09/21/16, improved to 74 as of 09/28/16. Walked 400' SBA/CGA. Festinating gait responds to cues. Okay generally retropulsive with loss of balance and poor self correction. Did 10 step. 1 rail CGA, Reduced initiation needing cues, reduced carry-over. Also with impulsivity e.g. arising from bed in the morning without assistance. Perseverates and needs cues for next step with ADLs anaya G&H and bathing. CGA showering and toileting. Continue physical therapy and occupational therapy to optimize mobility and activities of daily living. * Dementia, premorbid, and dysphagia. Moderate to severe cognitive impairment Decreased expressive language, and elaboration, has word-finding difficulty. Drawing ability indicated preserved visuospatial skills. Advanced to regular texture food, thin liquids on 09/25/16. Continue Speech and Language Pathology. Continue donepezil and memantine. 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 D/W Neurologist Dr. Connelly, 09/22/16: would consider trial of Sinemet as outpatient. Improving with PT. Follow-up approx 2 weeks after discharge from Inpatient Rehabilitation. * Secondary prevention for stroke. She has been discharged on aspirin as well as atorvastatin. Her blood pressure will be monitored closely and will be treated if it is significantly elevated. Consider full anticoagulation. Needs 30 day event monitor to r/o occult AFib. * CAD s/p stenting. D/W Dr. Melton, Cardiology. Restarted prasugrel 09/18/16. Discussed with son 09/23/16 and changed to clopidogrel for less expensive medication. * Likely hospital delirium. She has been discharged on quetiapine. Changed to PRN 07/17/16 but sundowning was observed so it has been restarted. We will discontinue starting 09/28/2016. * Question of urinary tract infection. No symptoms, so the ciprofloxacin ordered in the hospital has been d/c'd. Monitor for symptoms consistent with urinary tract infection. * Congestive heart failure with diastolic dysfunction and pulmonary hypertension. Pulmonary hypertension was not present on a prior echocardiogram in March of this year. Unclear etiology at present. She is not using O2. Chronic/stable conditions: * Possible obstructive sleep apnea? Overnight oximetry with hypoxia totalling approx 2 min. Doubt PB. * Dementia, on memantine and donepezil. * History of gastroesophageal reflux disorder. Continue famotidine. * Glaucoma. Continue bimatoprost eyedrops. * Anticoagulation. Discontinue enoxaparin 09/24/16 due to improved mobility. * Anemia. Improving on CBC 09/18/16. * Dysphagia on thickened liquids. Basic metabolic profile 09/18/16 not c/w dehydration. Attendant staffing, 15 minutes. Discussed with case management, PT, OT, [employer]. Continues to need constant supervision 24 hours a day. Attended family meeting 30 minutes, present. Given need for supervision options are home with 24 hour care versus half-way facility. prefers home with 24 hour care. Agreed on goal to discharge by the end of this week most likely 10/02. 09/28/16 12:50 Subjective: No complaints this morning. Slept well. Denies pain, fever, chills, cough, dyspnea. Objective: Vital Signs Temp Pulse Resp BP Pulse Ox 36.9 C 60 16 131/75 H 97 09/28/16 06:42 09/28/16 06:42 09/28/16 06:42 09/28/16 09:00 09/28/16 06:42 Laboratory Results 09/18/16 06:10 09/18/16 06:10 09/27/16 09/28/16 09/29/16 05:59 05:59 05:59 Intake Total 1118 735 Balance 1118 735 - Time Spent With Patient Time Spent With Patient: Greater than 35 minutes floor time today, including more than 50% of time in coordination of care during staffing meeting, and counseling during family meeting. Physical Exam - Physical Exam General Appearance: WD/WN, alert, no apparent distress Respiratory: normal breath sounds, No crackles, No rhonchi, No wheezing Cardiac/Chest: regular rate, rhythm, No edema Skin: normal color, warm/dry Neuro/Psych: alert, normal mood/affect, abnormal gait (festinating initially then step length improves but remains short on RLE. Festinating when turning.) , other (Shows a picture of a blake she did yesterday with colored pencils, well executed. Identifies lillies on her table.) ICD10 Worksheet Patient Problems: Problems Problem Status Onset Abdominal pain Acute Chest pain Acute Chronic Disease Mgmt/Transitional Care Acute Complete heart block Acute Elevated troponin Acute Elevated troponin I level Acute
[2016-09-28] MEDS: ATORVASTATIN CALCIUM 40 MG TAB PO SCH (19:43)
[2016-09-28] MEDS: DONEPEZIL HCL 5 MG TAB PO SCH (19:43)
[2016-09-28] MEDS: BIMATOPROST 0.01% 2.5 ML OPHT.BTL EACHEYE SCH (19:45)
[2016-09-29] MEDS: amLODIPine BESYLATE 5 MG TAB PO SCH (07:23)
[2016-09-29] MEDS: CLOPIDOGREL BISULFATE 75 MG TAB PO SCH (07:23)
[2016-09-29] MEDS: ASPIRIN 325 MG TAB PO SCH (07:23)
[2016-09-29] MEDS: IPRATROPIUM 0.06% NASAL SPRAY EACHNARE SCH ×2 (07:24→20:03)
[2016-09-29] MEDS: FAMOTIDINE 20 MG TAB PO SCH ×2 (07:24→20:00)
[2016-09-29] MEDS: MEMANTINE HCL 5 MG TAB PO SCH (07:24)
--- NOTE | 2016-09-29 08:31 | SOAPPROG ---
[facility] Progress Note Assessment/Plan: Assessment: 81-year-old woman with dementia and a prior stroke five years ago now with a left MCA stroke status post a successful thrombectomy. currently with dysphagia and ataxia. Today's plan-patient participating well in therapies, no reports from nursing of any issues. Continue rehabilitation plan below. Monitor for sundowning in the absence of quetiapine. * Cerebrovascular accident of the right M1 branch of the middle cerebral artery on 09/08/16, status post successful thrombectomy with dysphagia and ataxia. Initial FIM 60 on 09/21/16, improved to 74 as of 09/28/16. Walked 400' SBA/CGA. Festinating gait responds to cues. Okay generally retropulsive with loss of balance and poor self correction. Did 10 step. 1 rail CGA, Reduced initiation needing cues, reduced carry-over. Also with impulsivity e.g. arising from bed in the morning without assistance. Perseverates and needs cues for next step with ADLs anaya G&H and bathing. CGA showering and toileting. Continue physical therapy and occupational therapy to optimize mobility and activities of daily living. * Dementia, premorbid, and dysphagia. Moderate to severe cognitive impairment Decreased expressive language, and elaboration, has word-finding difficulty. Drawing ability indicated preserved visuospatial skills. Advanced to regular texture food, thin liquids on 09/25/16. Continue Speech and Language Pathology. Continue donepezil and memantine. 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 D/W Neurologist Dr. Connelly, 09/22/16: would consider trial of Sinemet as outpatient. Improving with PT. Follow-up approx 2 weeks after discharge from Inpatient Rehabilitation. * Secondary prevention for stroke. She has been discharged on aspirin as well as atorvastatin. Her blood pressure will be monitored closely and will be treated if it is significantly elevated. Consider full anticoagulation. Needs 30 day event monitor to r/o occult AFib. * CAD s/p stenting. D/W Dr. Melton, Cardiology. Restarted prasugrel 09/18/16. Discussed with son 09/23/16 and changed to clopidogrel for less expensive medication. * Likely hospital delirium. She has been discharged on quetiapine. Changed to PRN 07/17/16 but sundowning was observed so it has been restarted. We will discontinue starting 09/28/2016. * Question of urinary tract infection. No symptoms, so the ciprofloxacin ordered in the hospital has been d/c'd. Monitor for symptoms consistent with urinary tract infection. * Congestive heart failure with diastolic dysfunction and pulmonary hypertension. Pulmonary hypertension was not present on a prior echocardiogram in March of this year. Unclear etiology at present. She is not using O2. Chronic/stable conditions: * Possible obstructive sleep apnea? Overnight oximetry with hypoxia totalling approx 2 min. Doubt PB. * Dementia, on memantine and donepezil. * History of gastroesophageal reflux disorder. Continue famotidine. * Glaucoma. Continue bimatoprost eyedrops. * Anticoagulation. Discontinue enoxaparin 09/24/16 due to improved mobility. * Anemia. Improving on CBC 09/18/16. * Dysphagia on thickened liquids. Basic metabolic profile 09/18/16 not c/w dehydration. Continues to need constant supervision 24 hours a day. Attended family meeting 30 minutes, present. Given need for supervision options are home with 24 hour care versus [facility] facility. prefers home with 24 hour care. Agreed on goal to discharge by the end of this week most likely 10/02. 09/19/16 12:20 09/19/16 12:26 09/20/16 11:25 09/24/16 11:49 09/29/16 08:28 09/29/16 08:31 Subjective: Chief complaint: Neurological improvement No acute events overnight. The patient is participating in therapies per report , continuing to require 24 hour supervision. Last dose of quetiapine was last night. She denies any new shortness of breath or chest pain, no new numbness, tingling, or weakness. Objective: Vital Signs Temp Pulse Resp BP Pulse Ox 36.8 C 60 12 130/60 H 97 09/29/16 06:44 09/29/16 06:44 09/29/16 06:44 09/29/16 07:23 09/29/16 06:44 Laboratory Results 09/18/16 06:10 09/18/16 06:10 09/28/16 09/29/16 09/30/16 05:59 05:59 05:59 Intake Total 735 860 Balance 735 860 Physical Exam - Physical Exam General Appearance: WD/WN, alert, no apparent distress, thin EENT: No scleral icterus (R), No scleral icterus (L) Respiratory: lungs clear, normal breath sounds, No respiratory distress, No accessory muscle use, No rales, No rhonchi, No wheezing Cardiac/Chest: normal peripheral pulses, regular rate, rhythm, No edema, No extra beats Skin: normal color, warm/dry, No cyanosis Neuro/Psych: alert, normal mood/affect, No oriented x 3 (Disoriented to season) ICD10 Worksheet Patient Problems: Problems Problem Status Onset Abdominal pain Acute Chest pain Acute Chronic Disease Mgmt/Transitional Care Acute Complete heart block Acute Elevated troponin Acute Elevated troponin I level Acute
[2016-09-29] MEDS: DONEPEZIL HCL 5 MG TAB PO SCH (20:00)
[2016-09-29] MEDS: ATORVASTATIN CALCIUM 40 MG TAB PO SCH (20:03)
[2016-09-29] MEDS: BIMATOPROST 0.01% 2.5 ML OPHT.BTL EACHEYE SCH (20:04)
[2016-09-30] MEDS: FAMOTIDINE 20 MG TAB PO SCH ×2 (08:09→20:37)
[2016-09-30] MEDS: amLODIPine BESYLATE 5 MG TAB PO SCH (08:09)
[2016-09-30] MEDS: ASPIRIN 325 MG TAB PO SCH (08:10)
[2016-09-30] MEDS: CLOPIDOGREL BISULFATE 75 MG TAB PO SCH (08:10)
[2016-09-30] MEDS: MEMANTINE HCL 5 MG TAB PO SCH (08:10)
[2016-09-30] MEDS: IPRATROPIUM 0.06% NASAL SPRAY EACHNARE SCH ×2 (08:16→20:37)
--- NOTE | 2016-09-30 11:38 | SOAPPROG ---
SOAP Progress Note Assessment/Plan: Assessment: * Cerebrovascular accident of the right M1 branch of the middle cerebral artery on 09/08/16, status post successful thrombectomy with dysphagia and ataxia. Initial FIM 60 on 09/21/16, improved to 74 as of 09/28/16. Walked 400' SBA/CGA. Festinating gait responds to cues. Occasionally retropulsive with loss of balance and poor self correction. Did 10 step. 1 rail CGA, Reduced initiation needing cues, reduced carry-over. Also with impulsivity e.g. arising from bed in the morning without assistance. Perseverates and needs cues for next step with ADLs anaya G&H and bathing. CGA showering and toileting. Continue physical therapy and occupational therapy to optimize mobility and activities of daily living. * Dementia, premorbid, and dysphagia. Moderate to severe cognitive impairment Decreased expressive language, and elaboration, has word-finding difficulty. Drawing ability indicates preserved visuospatial skills. Advanced to regular texture food, thin liquids on 09/25/16. Continue Speech and Language Pathology. Continue donepezil and memantine. 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 D/W Neurologist Dr. Connelly, 09/22/16: would consider trial of Sinemet as outpatient. Improving with PT. Follow-up approx 2 weeks after discharge from Inpatient Rehabilitation. * Secondary prevention for stroke. She has been discharged on aspirin as well as atorvastatin. Her blood pressure will be monitored closely and will be treated if it is significantly elevated. Consider full anticoagulation. Needs 30 day event monitor to r/o occult AFib. * CAD s/p stenting. D/W Dr. Melton, Cardiology. Restarted prasugrel 09/18/16. Discussed with son 09/23/16 and changed to clopidogrel for less expensive medication. * Likely hospital delirium. She has been discharged on quetiapine. Changed to PRN 07/17/16 but sundowning was observed so it has been restarted. We will discontinue starting 09/28/2016. * Question of urinary tract infection. No symptoms, so the ciprofloxacin ordered in the hospital has been d/c'd. Monitor for symptoms consistent with urinary tract infection. * Congestive heart failure with diastolic dysfunction and pulmonary hypertension. Pulmonary hypertension was not present on a prior echocardiogram in March of this year. Unclear etiology at present. She is not using O2. Chronic/stable conditions: * Possible obstructive sleep apnea? Overnight oximetry with hypoxia totalling approx 2 min. Doubt PB. * Dementia, on memantine and donepezil. * History of gastroesophageal reflux disorder. Continue famotidine. * Glaucoma. Continue bimatoprost eyedrops. * Anticoagulation. Discontinue enoxaparin 09/24/16 due to improved mobility. * Anemia. Improving on CBC 09/18/16. * Dysphagia on thickened liquids. Basic metabolic profile 09/18/16 not c/w dehydration. Continues to need constant supervision 24 hours a day. Attended family meeting 30 minutes, present. Given need for supervision options are home with 24 hour care versus [facility] facility. prefers home with 24 hour care. Agreed on goal to discharge by the end of this week most likely 10/02. 09/30/16 11:36 Subjective: No complaints. Denies cough, dyspnea, fevers, chills, dysuria. Objective: Vital Signs Temp Pulse Resp BP Pulse Ox 36.6 C 60 16 131/70 H 93 09/30/16 07:00 09/30/16 07:00 09/30/16 07:00 09/30/16 08:09 09/30/16 07:00 Laboratory Results 09/18/16 06:10 09/18/16 06:10 09/29/16 09/30/16 10/01/16 05:59 05:59 05:59 Intake Total 860 1154 340 Balance 860 1154 340 Physical Exam - Physical Exam General Appearance: WD/WN, alert, no apparent distress Respiratory: No respiratory distress, No accessory muscle use Skin: normal color, warm/dry Neuro/Psych: no motor/sensory deficits, alert, normal mood/affect ICD10 Worksheet Patient Problems: Problems Problem Status Onset Abdominal pain Acute Chest pain Acute Chronic Disease Mgmt/Transitional Care Acute Complete heart block Acute Elevated troponin Acute Elevated troponin I level Acute
[2016-09-30] MEDS: ATORVASTATIN CALCIUM 40 MG TAB PO SCH (20:37)
[2016-09-30] MEDS: BIMATOPROST 0.01% 2.5 ML OPHT.BTL EACHEYE SCH (20:37)
[2016-09-30] MEDS: DONEPEZIL HCL 5 MG TAB PO SCH (20:37)
[2016-10-01] MEDS: amLODIPine BESYLATE 5 MG TAB PO SCH (08:26)
[2016-10-01] MEDS: MEMANTINE HCL 5 MG TAB PO SCH (08:26)
[2016-10-01] MEDS: CLOPIDOGREL BISULFATE 75 MG TAB PO SCH (08:26)
[2016-10-01] MEDS: ASPIRIN 325 MG TAB PO SCH (08:26)
[2016-10-01] MEDS: FAMOTIDINE 20 MG TAB PO SCH ×2 (08:26→20:00)
[2016-10-01] MEDS: IPRATROPIUM 0.06% NASAL SPRAY EACHNARE SCH ×2 (08:36→20:01)
--- NOTE | 2016-10-01 14:08 | SOAPPROG ---
SOAP Progress Note Assessment/Plan: Assessment: * Cerebrovascular accident of the right M1 branch of the middle cerebral artery on 09/08/16, status post successful thrombectomy with dysphagia and ataxia. Initial FIM 60 on 09/21/16, improved to 74 as of 09/28/16. Walked 400' SBA/CGA. Festinating gait responds to cues. Occasionally retropulsive with loss of balance and poor self correction. Did 10 step. 1 rail CGA, Reduced initiation needing cues, reduced carry-over. Also with impulsivity e.g. arising from bed in the morning without assistance. Perseverates and needs cues for next step with ADLs anaya G&H and bathing. CGA showering and toileting. Continue physical therapy and occupational therapy to optimize mobility and activities of daily living. * Dementia, premorbid, and dysphagia. Moderate to severe cognitive impairment Decreased expressive language, and elaboration, has word-finding difficulty. Drawing ability indicates preserved visuospatial skills. Advanced to regular texture food, thin liquids on 09/25/16. Continue Speech and Language Pathology. Continue donepezil and memantine. 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 D/W Neurologist Dr. Connelly, 09/22/16: would consider trial of Sinemet as outpatient. Improving with PT. Follow-up approx 2 weeks after discharge from Inpatient Rehabilitation. * Secondary prevention for stroke. She has been discharged on aspirin as well as atorvastatin. Her blood pressure will be monitored closely and will be treated if it is significantly elevated. Consider full anticoagulation. Needs 30 day event monitor to r/o occult AFib. Chronic/stable conditions: * CAD s/p stenting. D/W Dr. Melton, Cardiology. Restarted prasugrel 09/18/16. Discussed with son 09/23/16 and changed to clopidogrel for less expensive medication. * Likely hospital delirium. She has been discharged on quetiapine. Changed to PRN 07/17/16 but sundowning was observed so it has been restarted. Discontinued . * Question of urinary tract infection. No symptoms, so the ciprofloxacin ordered in the hospital has been d/c'd. Monitor for symptoms consistent with urinary tract infection. * Congestive heart failure with diastolic dysfunction and pulmonary hypertension. Pulmonary hypertension was not present on a prior echocardiogram in March of this year. Unclear etiology at present. She is not using O2. * Possible obstructive sleep apnea? Overnight oximetry with hypoxia totalling approx 2 min. Doubt PB. * Dementia, on memantine and donepezil. * History of gastroesophageal reflux disorder. Continue famotidine. * Glaucoma. Continue bimatoprost eyedrops. * Anticoagulation. Discontinue enoxaparin 09/24/16 due to improved mobility. * Anemia. Improving on CBC 09/18/16. * Dysphagia on thickened liquids. Basic metabolic profile 09/18/16 not c/w dehydration. Continues to need constant supervision 24 hours a day. Given need for supervision options are home with 24 hour care versus [facility] facility. prefers home with 24 hour care. Discharge home 10/02/2016. 10/01/16 14:05 Subjective: No complaints. Denies pain, cough, fevers, chills. No dysuria. Objective: Vital Signs Temp Pulse Resp BP Pulse Ox 36.7 C 64 18 130/86 H 96 10/01/16 08:00 10/01/16 08:00 10/01/16 08:00 10/01/16 08:26 10/01/16 08:00 Laboratory Results 09/18/16 06:10 09/18/16 06:10 09/30/16 10/01/16 10/02/16 05:59 05:59 05:59 Intake Total 1154 676 240 Balance 1154 676 240 Physical Exam - Physical Exam General Appearance: WD/WN, alert, no apparent distress Respiratory: normal breath sounds, No crackles, No rhonchi, No wheezing Cardiac/Chest: regular rate, rhythm, No edema Skin: normal color, warm/dry Neuro/Psych: no motor/sensory deficits, alert, normal mood/affect ICD10 Worksheet Patient Problems: Problems Problem Status Onset Abdominal pain Acute Chest pain Acute Chronic Disease Mgmt/Transitional Care Acute Complete heart block Acute Elevated troponin Acute Elevated troponin I level Acute
[2016-10-01 18:40] VITALS: PULSE 60
[2016-10-01] MEDS: ATORVASTATIN CALCIUM 40 MG TAB PO SCH (20:00)
[2016-10-01] MEDS: DONEPEZIL HCL 5 MG TAB PO SCH (20:00)
[2016-10-01] MEDS: BIMATOPROST 0.01% 2.5 ML OPHT.BTL EACHEYE SCH (20:01)
[2016-10-02] MEDS: MEMANTINE HCL 5 MG TAB PO SCH (08:18)
[2016-10-02] MEDS: amLODIPine BESYLATE 5 MG TAB PO SCH (08:18)
[2016-10-02] MEDS: CLOPIDOGREL BISULFATE 75 MG TAB PO SCH (08:18)
[2016-10-02] MEDS: FAMOTIDINE 20 MG TAB PO SCH (08:18)
[2016-10-02] MEDS: ASPIRIN 325 MG TAB PO SCH (08:18)
[2016-10-02 08:23] VITALS: BP 116/87
[2016-10-02] MEDS: IPRATROPIUM 0.06% NASAL SPRAY EACHNARE SCH (08:23)
[2016-10-02 11:06] VITALS: RESP 16; TEMP 98.3; O2SAT 93
--- NOTE | 2016-10-02 15:43 | PDOREHIP ---
Admission [facility] - Admission - 3 Day Assessment Period Admission Date/Day 1: 09/17/16 Day 2: 09/18/16 Day 3: 09/19/16 Discharge [facility] - Discharge - 3 Day Assessment Period 2 Days Prior to Anticipated Discharge Date: 09/30/16 1 Day Prior to Anticipated Discharge Date: 10/01/16 Anticipated Discharge Date: 10/02/16 - Discharge Skin Conditions Unhealed Pressure Ulcer (1 or more/Stage 1 or >)-Discharge: 0. No
--- NOTE | 2016-10-03 05:08 | GDS ---
[f rep st] DISCHARGE SUMMARY ADMITTING DIAGNOSIS: Cerebrovascular accident. DISCHARGE DIAGNOSIS: Cerebrovascular accident. OTHER DISCHARGE DIAGNOSES: 1. Dementia. 2. Parkinsonism. 3. Coronary artery disease. CONSULTATIONS: There were none. PROCEDURES: There were none. COMPLICATIONS: There were none. HISTORY AND HOSPITAL COURSE: The patient was admitted to [facility] inpatient rehabilitation from [facility]. She was transferred to [facility] from the emergency department at [facility] on 09/08/2016 for possible cerebrovascular procedural intervention. She had presented with stroke symptoms of right-sided weakness. Brain imaging showed a possible acute thrombus in the left middle cerebral artery. At [facility], she underwent a successful thrombectomy and had improved ability to move the right side of her body. Imaging, however, subsequently showed small acute ischemic infarcts involving the left caudate head and the left lentiform nucleus. Echocardiogram at [facility] showed severe biatrial dilatation raising suspicion of paroxysmal atrial fibrillation as an etiology of the stroke but no dysrhythmias were seen on telemetry. She had improvement functionally during her stay. Her initial functional independence measure was 60 on 09/21/2016. This improved to 74 as of 2016 which, however, was still consistent with half-way level of care. She was able to walk 400 feet with standby assist to contact guard assist. She was noted to have a festinating gait, especially while turning. She occasionally had retropulsion with loss of balance and poor ability to correct. She was able to climb and descend 10 stairs using 1 rail with contact guard assist. She had reduced initiation needing cuing. She had reduced carry-over. She had some impulsivity and did not always call for assistance when rising out of bed. She was noted to have moderate to severe cognitive impairment with decreased expressive language elaboration and word-finding difficulty. She was continued on donepezil and memantine, which she had been taking prior to her cerebrovascular accident. Parkinsonian gait was noted. This was discussed with her neurologist, Dr. Connelly, who advised a trial of Sinemet as an outpatient under his supervision. She was discharged from [facility] with recommendation for cardiac monitoring to rule out occult atrial fibrillation as an etiology of her stroke, and she will follow up as an outpatient with [facility] to have this done. LABORATORY STUDIES: During her stay, CBC on 09/18/2016 showed mild anemia with hemoglobin of 11.7 and hematocrit of 35.7. Her MCV was high at 103.5. Serum chemistry revealed a normal vitamin B12 at 921. Renal function and electrolytes were overall within normal limits but for a slightly elevated BUN of 24. PHYSICAL EXAMINATION: VITAL SIGNS: On the day of discharge, blood pressure was 116/87, heart rate was 60, respiratory rate was 16, oxygen saturation was 93 % on room air, temperature was 36.8 degrees. GENERAL: This is a well-nourished , well-developed, elderly woman, sitting in a wheelchair, cooperative, and in no acute distress. HEENT: Extraocular movements are intact. Pupils are equal , round, and reactive to light. Mucous membranes are moist. Dentition is in good condition. HEART: There is regular rate and rhythm with no murmurs, rubs , or gallops. LUNGS: Clear to auscultation bilaterally. ABDOMEN: Soft, nontender, nondistended with normoactive bowel sounds. EXTREMITIES: There is no cyanosis, clubbing, or edema. NEUROLOGIC: She is alert and oriented to self and general situation. There is no focal weakness. Sensation is intact to light touch. Gait was not observed. CONDITION UPON DISCHARGE: Good. ACTIVITY: Ad hannah but she needs standby to contact guard assist with all mobility-related activities and supervision for all activities of daily living. DIET: Regular. DATE OF NEXT APPOINTMENTS: She has followups scheduled with primary care provider, Dr. Manuel Olivares, on 10/06/2016, with neurologist, Dr. Ben Connelly, on 10/13/2016, and with pairer substandard, Dr. Angel Melton, in approximately 2 weeks after discharge. DISCHARGE DESTINATION: She is discharging home with her who will be hiring a caregiver to provide assistance. MEDICATIONS AT DISCHARGE: 1. Amlodipine 5 mg p.o. q. day. 2. Clopidogrel 75 mg p.o. q. day. 3. Aspirin 325 mg p.o. q. day. 4. Atorvastatin 40 mg p.o. q.h.s. 5. Bimatoprost 0.01% 1 drop each eye q.h.s. 6. Donepezil 10 mg p.o. q.h.s. 7. Famotidine 20 mg p.o. b.i.d. 8. Ipratropium 0.06% nasal 2 sprays each naris b.i.d. 9. Memantine 5 mg p.o. q. day. ISSUES TO BE ADDRESSED AT FOLLOWUP: 1. Mobility and functional status. She will continue physical and occupational therapies at home and can follow up with Dr. Olivares, as well as Dr. Connelly on these issues. 2. Dementia. She will continue speech therapy at home and can follow up, again , with Dr. Olivares and/or Dr. Connelly. 3. Rule out occult atrial fibrillation. She will see Dr. Melton for placement of an event monitor with further followup per [facility]. Greater than 30 minutes were spent on this discharge including medication reconciliation and coordination of care. /[id number]/MODL MTDD
== END 2016-10-02 15:45 | disposition home or self-care (01) | DRG 57 ==
LOC: BREH 09-17 15:06
PROVIDERS: ADMIT Internal Medicine; ATTEND Internal Medicine
PROC: F07M3ZZ Motor Function Treatment of Musculoskeletal System - Whole Body (ICD-10-PCS; principal; 2016-09-17)
PROC: F08Z7ZZ Vocational Activities and Functional Community or Work Reintegration Skills Treatment (ICD-10-PCS; principal; 2016-09-17)
PROC: F0636ZZ Communicative/Cognitive Integration Skills Treatment of Neurological System - Whole Body (ICD-10-PCS; principal; 2016-09-17)
DX: I69.391 Dysphagia following cerebral infarction (principal); I69.393 Ataxia following cerebral infarction; I69.354 Hemiplegia and hemiparesis following cerebral infarction affecting left non-dominant side; I11.0 Hypertensive heart disease with heart failure; I50.32 Chronic diastolic (congestive) heart failure; I25.10 Atherosclerotic heart disease of native coronary artery without angina pectoris; F02.80 Dementia in other diseases classified elsewhere, unspecified severity, without behavioral disturbance, psychotic disturbance, mood disturbance, and anxiety; K21.9 Gastro-esophageal reflux disease without esophagitis; H40.9 Unspecified glaucoma; I27.2 Other secondary pulmonary hypertension; G47.33 Obstructive sleep apnea (adult) (pediatric); D64.9 Anemia, unspecified; Z66 Do not resuscitate
CPT/HCPCS: 82607-90; 92507-GN; 92522-GN; 92526-GN; 92610-GN; 97110-GO; 97110-GP; 97112-GP; 97116-GP; 97162-GP; 97166-GO; 97530-GO; 97530-GP; 97532-GO; 97535-GO; 99366-GO; J1650

== ENCOUNTER → 2017-09-13 | Outpatient (CLI) | payer OTHER | LOC: BHFA 15:15 | PROVIDERS: ATTEND Internal Medicine Cardiovascular Disease | DX: I63.9 Cerebral infarction, unspecified (principal); Z95.0 Presence of cardiac pacemaker ==